=== PATIENT | female | born 1940 | race Asian ===

== ENCOUNTER 2020-01-24 14:45 | Inpatient (IN) | payer OTHER ==
[2020-01-24 15:23] VITALS: BMI 17.6
--- NOTE | 2020-01-24 15:41 | PDOC ---
History of Present Illness - General Chief Complaint: Weakness Stated Complaint: WEAKNESS Time Seen by Provider: 01/24/20 14:51 - History of Present Illness Initial Comments: History obtained via presetter operator and brother. Shanika Mancuso is a 79 y/o female with unknown [facility] today. Lives at home with . A few days ago her was admitted to [facility]. Per school of nursing director patient has not been eating for the past few days since her was in the hospital. No complaints at this time. Has not seen a doctor in many years. welfare service aide noticed that she was not eating and called EMS. No chest pain/shortness of breath. Pt speaks Upper Sorbian and is hard of hearing. Past History - Medical History Allergies/Adverse Reactions: Allergies Allergy/AdvReac Type Severity Reaction Status Date / Time No Known Allergies Allergy Verified 01/24/20 16:12 Home Medications: Ambulatory Orders Asceniv 01/24/20 Gabapentin 01/24/20 Nexium 01/24/20 Pataday 01/24/20 Vitamin D - 01/24/20 - Psycho-Social/Smoking History Smoking History: Unknown if ever smoked Review of Systems - Review of Systems Comments:: GENERAL/CONSTITUTIONAL: No fever or chills. No weakness._ HEAD, EYES, EARS, NOSE AND THROAT: No change in vision. No change in hearing. No sore throat._ CARDIOVASCULAR: No chest pain or shortness of breath_ RESPIRATORY: Denies cough, hemoptysis_ GASTROINTESTINAL: No nausea, vomiting, diarrhea or constipation._ GENITOURINARY: No dysuria, frequency, or change in urination._ MUSCULOSKELETAL: No joint or muscle swelling or pain. No neck or back pain._ SKIN: No rash_ NEUROLOGIC: No headache, vertigo, loss of consciousness, or change in strength/sensation._ ENDOCRINE: No increased thirst. No abnormal weight change_ HEMATOLOGIC/LYMPHATIC: No anemia, easy bleeding, or history of blood clots._ ALLERGIC/IMMUNOLOGIC: No hives or skin allergy._ *Physical Exam - Vital Signs Last Vital Signs Temp Pulse Resp BP Pulse Ox 97.9 F 75 16 127/77 99 01/24/20 15:13 01/24/20 15:13 01/24/20 15:13 01/24/20 15:13 01/24/20 15:13 - Physical Exam GENERAL: Awake, alert, in no acute distress_ HEAD: No signs of trauma, normocephalic, atraumatic _ EYES: PERRLA, EOMI, sclera anicteric, conjunctiva clear_ ENT: Hearing grossly normal, nares patent, oropharynx clear without exudates. No uvular deviation. Moist mucosa_ NECK: Normal ROM, supple, no lymphadenopathy, JVD, or masses_ LUNGS: No distress, speaks in full sentences, clear to auscultation bilaterally _ HEART: Regular rate and rhythm, normal S1 and S2, no murmurs appreciated, peripheral pulses normal and equal bilaterally._ ABDOMEN: Soft, nontender, normoactive bowel sounds. No guarding, no rebound. No masses_ EXTREMITIES: Normal inspection, Normal range of motion, no edema. No clubbing or cyanosis_ NEUROLOGICAL: Cranial nerves II through XII grossly intact. no focal sensorimotor deficits _ SKIN: Warm, Dry, normal turgor, no rashes or lesions noted_ ED Treatment Course - LABORATORY CBC & Chemistry Diagram: 01/24/20 16:19 01/24/20 16:19 Medical Decision Making - Medical Decision Making 01/24/20 16:08 79F no known PMH presenting today with decreased appetite and failure to thrive. -labs -urine -cardiac w/u -CT head 01/24/20 17:24 Labs reviewed. Laboratory Last Values WBC 7.7 K/mm3 (4.0-10.0) 01/24/20 16:19 RBC 4.09 M/mm3 (3.60-5.2) 01/24/20 16:19 Hgb 11.6 GM/dL (10.7-15.3) 01/24/20 16:19 Hct 35.2 % (32.4-45.2) 01/24/20 16:19 MCV 86.0 fl (80-96) 01/24/20 16:19 MCH 28.3 pg (25.7-33.7) 01/24/20 16:19 MCHC 33.0 g/dl (32.0-36.0) 01/24/20 16:19 RDW 14.4 % (11.6-15.6) 01/24/20 16:19 Plt Count 330 K/MM3 (134-434) 01/24/20 16:19 MPV 8.8 fl (7.5-11.1) 01/24/20 16:19 Absolute Neuts (auto) 4.6 K/mm3 (1.5-8.0) 01/24/20 16:19 Neutrophils % 59.8 % (42.8-82.8) 01/24/20 16:19 Lymphocytes % 30.7 % (8-40) 01/24/20 16:19 Monocytes % 8.0 % (3.8-10.2) 01/24/20 16:19 Eosinophils % 1.0 % (0-4.5) 01/24/20 16:19 Basophils % 0.5 % (0-2.0) 01/24/20 16:19 Nucleated RBC % 0 % (0-0) 01/24/20 16:19 PT with INR 18.20 SEC (9.7-13.0) H 01/24/20 16:19 INR 1.54 (0.83-1.09) H 01/24/20 16:19 PTT (Actin FS) 28.4 SECONDS (25.2-36.5) 01/24/20 16:19 Sodium 130 mmol/L (136-145) L 01/24/20 16:19 Potassium 5.6 mmol/L (3.5-5.1) H 01/24/20 16:19 Chloride 94 mmol/L (98-107) L 01/24/20 16:19 Carbon Dioxide 25 mmol/L (21-32) 01/24/20 16:19 Anion Gap 11 MMOL/L (8-16) 01/24/20 16:19 BUN 27.7 mg/dL (7-18) H 01/24/20 16:19 Creatinine 1.4 mg/dL (0.55-1.3) H 01/24/20 16:19 Est GFR (CKD-EPI)AfAm 41.03 01/24/20 16:19 Est GFR (CKD-EPI)NonAf 35.40 01/24/20 16:19 POC Glucometer 237 UNITS (80-120) 01/24/20 17:05 Random Glucose 223 mg/dL (74-106) H 01/24/20 16:19 Calcium 9.3 mg/dL (8.5-10.1) 01/24/20 16:19 Total Bilirubin 0.4 mg/dL (0.2-1) 01/24/20 16:19 AST 12 U/L (15-37) L 01/24/20 16:19 ALT 20 U/L (13-61) 01/24/20 16:19 Alkaline Phosphatase 98 U/L (45-117) 01/24/20 16:19 Creatine Kinase 35 U/L (26-192) 01/24/20 16:19 Troponin I < 0.02 ng/ml (0.00-0.05) 01/24/20 16:19 Total Protein 8.1 g/dl (6.4-8.2) 01/24/20 16:19 Albumin 3.6 g/dl (3.4-5.0) 01/24/20 16:19 Urine Color Yellow 01/24/20 16:56 Urine Appearance Clear 01/24/20 16:56 Urine pH 5.0 (5.0-8.0) 01/24/20 16:56 Ur Specific [place] 1.017 (1.010-1.035) 01/24/20 16:56 Urine Protein 2+ (NEGATIVE) H 01/24/20 16:56 Urine Glucose (UA) 2+ (NEGATIVE) H 01/24/20 16:56 Urine Ketones Trace (NEGATIVE) H 01/24/20 16:56 Urine Blood Negative (NEGATIVE) 01/24/20 16:56 Urine Nitrite Negative (NEGATIVE) 01/24/20 16:56 Urine Bilirubin Negative (NEGATIVE) 01/24/20 16:56 Urine Urobilinogen 1.0 mg/dL (0.2-1.0) 01/24/20 16:56 Ur Leukocyte Esterase Trace (NEGATIVE) 01/24/20 16:56 Urine WBC (Auto) 40 /uL (0-25.8) 01/24/20 16:56 Urine RBC (Auto) 6 /uL (0-23.9) 01/24/20 16:56 Urine Casts (Auto) 4 /uL (0-3.1) 01/24/20 16:56 U Epithel Cells (Auto) 24 /uL (0-25.1) 01/24/20 16:56 Urine Bacteria (Auto) 184 /uL (0-1359) 01/24/20 16:56 CT head negative for acute intracranial pathology. Mild JULIETTE - will start gentle hydration. EKG shows 76 bpm, NSR, T wave inversions in II, aVF, V6, normal axis, no ST elevation, QTc 396, no prior for comparison. Plan to admit for JULIETTE and usp placement. 01/24/20 18:30 D/w Dr. Iqbal who accepts the patient for admission. Discharge - Discharge Information Problems reviewed: Yes Clinical Impression/Diagnosis: JULIETTE (acute kidney injury), Failure to thrive in adult Condition: Stable - Admission Yes - Follow up/Referral - Patient Discharge Instructions - Post Discharge Activity
[2020-01-24 16:37] LABS: BASO % 0.5 % (0-2.0); HEMATOCRIT 35.2 % (32.4-45.2); HEMOGLOBIN 11.6 GM/dL (10.7-15.3); LYMPH % 30.7 % (8-40); MCH 28.3 pg (25.7-33.7); MEAN PLT VOLUME 8.8 fl (7.5-11.1); NEUT % 59.8 % (42.8-82.8); PLATELET COUNT 330 K/MM3 (134-434); RBC 4.09 M/mm3 (3.60-5.2); RDW 14.4 % (11.6-15.6); WHITE BLOOD COUNT 7.7 K/mm3 (4.0-10.0)
[2020-01-24 17:06] LABS: EPI CELLS 24 /uL (0-25.1); HYALINE CASTS 4 /uL (0-3.1); URINE APPEARANCE CLEAR; URINE BACTERIA 184 /uL (0-1359); URINE BILIRUBIN NEGATIVE (NEGATIVE); URINE COLOR YELLOW; URINE GLUCOSE (UA) 2+ (NEGATIVE); URINE KETONE TRACE (NEGATIVE); URINE LEUK ESTERASE TRACE (NEGATIVE); URINE NITRITE NEGATIVE (NEGATIVE); URINE PROTEIN 2+ (NEGATIVE); URINE RBC 6 /uL (0-23.9); URINE WBC 40 /uL (0-25.8)
[2020-01-24 17:10] LABS: ALBUMIN 3.6 g/dl (3.4-5.0); ALK PHOS 98 U/L (45-117); ANION GAP 11 MMOL/L (8-16); BILIRUBIN,TOTAL 0.4 mg/dL (0.2-1); BLOOD UREA NITROGEN 27.7 mg/dL (7-18); CALCIUM 9.3 mg/dL (8.5-10.1); CHLORIDE 94 mmol/L (98-107); CO2 25 mmol/L (21-32); CREATININE 1.4 mg/dL (0.55-1.3); GLUCOSE,RANDOM 223 mg/dL (74-106); POTASSIUM 5.6 mmol/L (3.5-5.1); SGOT/AST 12 U/L (15-37); SGPT/ALT 20 U/L (13-61); SODIUM 130 mmol/L (136-145); TOT PROT 8.1 g/dl (6.4-8.2)
[2020-01-24 17:13] LABS: INR 1.54 (0.83-1.09); PROTHROMBIN TIME (PATIENT) 18.2 SEC (9.7-13.0)
[2020-01-24 17:16] LABS: ACTIVATED PTT 28.4 SECONDS (25.2-36.5)
[2020-01-24] MEDS ORDERED: SODIUM CHLORIDE 0.9% 500 ML INFUS.BAG IV ONE (17:26)
--- NOTE | 2020-01-24 17:39 | PDOC ---
Documentation entered by Coral Rivero SCRIBE, acting as scribe for Danny Buenrostro MD. Danny Buenrostro MD: This documentation has been prepared by the Mat oleary Adrianna, SCRIBE, under my direction and personally reviewed by me in its entirety. I confirm that the documentation accurately reflects all work, treatment, procedures, and medical decision making performed by me. Attending Attestation - Resident Resident Name: Alton Andersen - ED Attending Attestation I have performed the following: I have examined & evaluated the patient, The case was reviewed & discussed with the resident, I agree w/resident's findings & plan, Exceptions are as noted - HPI HPI: The patient is an 79 year old female, with unknown PMH, who presents to the ED for failure to thrive. As per nursing informatics clinical analyst, the patient's was recently admitted to [facility] and has not been with her. Since then, patient had not been eating and is increasingly lethargic. HPI is limited 2/2 patient being a poor historian. - Physicial Exam PE: see resident exam - Medical Decision Making 01/24/20 17:40 79 F with failure to thrive. - Labs - CXR, UA - CT head - Admit Discharge - Discharge Information Problems reviewed: Yes Clinical Impression/Diagnosis: JULIETTE (acute kidney injury), Failure to thrive in adult Condition: Stable - Follow up/Referral - Patient Discharge Instructions - Post Discharge Activity
--- NOTE | 2020-01-24 18:21 | HP ---
CHIEF COMPLAINT:FTT, AMS PCP: none HISTORY OF PRESENT ILLNESS: 79 yo serbian speaking F PMH HTN, DM, GERD, hx of cardiac murmur brought into hospital by home health aid for failure to thrive and inability to ambulate. Attempted to speak with patient with viscosity worker phone but patient is hard of hearing. attempted to call brother with number in chart without success. spoke with brother , who states that is primary intern architect and asked me to call him for further details. Brother states that normally she walks and can perform basic daily tasks but normally helps care for her. he states she has been bed ridden for a few days. Husbands number was given as Carlos: [phone]. Dr Bryant- primary physician - hasnt been seen in >5 y. states 30 lb wt loss 5 y ago. endorses DM and HTN. states she had a cardiac murmur in past. [phone] ER course was notable for: (1)CXR negative for acute pathology (2)Cr 1.4 PAST MEDICAL HISTORY: no known hx PAST SURGICAL HISTORY: surgical scar below umbilicus but would need further history Social History: unable to obtain Allergies No Known Allergies Allergy (Verified 01/24/20 16:12) HOME MEDICATIONS: Home Medications Medication Instructions Recorded Asceniv 01/24/20 Gabapentin 01/24/20 Nexium 01/24/20 Pataday 01/24/20 Vitamin D - 01/24/20 REVIEW OF SYSTEMS: unable to obtain PHYSICAL EXAMINATION Vital Signs - 24 hr 01/24/20 15:13 Temperature 97.9 F Pulse Rate 75 Respiratory 16 Rate Blood Pressure 127/77 O2 Sat by Pulse 99 Oximetry (%) GENERAL: Awake, alert,, in no acute distress. thin elderly woman HEAD: Normal with no signs of trauma. EYES: Pupils equal, round and reactive to light, extraocular movements intact EARS, NOSE, THROAT:dry mucous membranes. NECK: no JVD. LUNGS: Breath sounds equal, clear to auscultation bilaterally. No wheezes, and no crackles. No accessory muscle use. HEART: Regular rate and rhythm, normal S1 and S2; + systolic murmur ABDOMEN: Soft, nontender, not distended, normoactive bowel sounds, no guarding, no rebound UPPER EXTREMITIES: 2+ pulses, warm, well-perfused.No peripheral edema. LOWER EXTREMITIES: 2+ pulses, warm, well-perfused. No calf tenderness. No peripheral edema. NEUROLOGICAL: unable to assess, but no facial asymmetry, moves extremities spontaneously. responds to commands . Laboratory Last Values WBC 7.7 K/mm3 (4.0-10.0) 01/24/20 16:19 RBC 4.09 M/mm3 (3.60-5.2) 01/24/20 16:19 Hgb 11.6 GM/dL (10.7-15.3) 01/24/20 16:19 Hct 35.2 % (32.4-45.2) 01/24/20 16:19 MCV 86.0 fl (80-96) 01/24/20 16:19 MCH 28.3 pg (25.7-33.7) 01/24/20 16:19 MCHC 33.0 g/dl (32.0-36.0) 01/24/20 16:19 RDW 14.4 % (11.6-15.6) 01/24/20 16:19 Plt Count 330 K/MM3 (134-434) 01/24/20 16:19 MPV 8.8 fl (7.5-11.1) 01/24/20 16:19 Absolute Neuts (auto) 4.6 K/mm3 (1.5-8.0) 01/24/20 16:19 Neutrophils % 59.8 % (42.8-82.8) 01/24/20 16:19 Lymphocytes % 30.7 % (8-40) 01/24/20 16:19 Monocytes % 8.0 % (3.8-10.2) 01/24/20 16:19 Eosinophils % 1.0 % (0-4.5) 01/24/20 16:19 Basophils % 0.5 % (0-2.0) 01/24/20 16:19 Nucleated RBC % 0 % (0-0) 01/24/20 16:19 PT with INR 18.20 SEC (9.7-13.0) H 01/24/20 16:19 INR 1.54 (0.83-1.09) H 01/24/20 16:19 PTT (Actin FS) 28.4 SECONDS (25.2-36.5) 01/24/20 16:19 Sodium 130 mmol/L (136-145) L 01/24/20 16:19 Potassium 5.6 mmol/L (3.5-5.1) H 01/24/20 16:19 Chloride 94 mmol/L (98-107) L 01/24/20 16:19 Carbon Dioxide 25 mmol/L (21-32) 01/24/20 16:19 Anion Gap 11 MMOL/L (8-16) 01/24/20 16:19 BUN 27.7 mg/dL (7-18) H 01/24/20 16:19 Creatinine 1.4 mg/dL (0.55-1.3) H 01/24/20 16:19 Est GFR (CKD-EPI)AfAm 41.03 01/24/20 16:19 Est GFR (CKD-EPI)NonAf 35.40 01/24/20 16:19 POC Glucometer 237 UNITS (80-120) 01/24/20 17:05 Random Glucose 223 mg/dL (74-106) H 01/24/20 16:19 Calcium 9.3 mg/dL (8.5-10.1) 01/24/20 16:19 Total Bilirubin 0.4 mg/dL (0.2-1) 01/24/20 16:19 AST 12 U/L (15-37) L 01/24/20 16:19 ALT 20 U/L (13-61) 01/24/20 16:19 Alkaline Phosphatase 98 U/L (45-117) 01/24/20 16:19 Creatine Kinase 35 U/L (26-192) 01/24/20 16:19 Troponin I < 0.02 ng/ml (0.00-0.05) 01/24/20 16:19 Total Protein 8.1 g/dl (6.4-8.2) 01/24/20 16:19 Albumin 3.6 g/dl (3.4-5.0) 01/24/20 16:19 Urine Color Yellow 01/24/20 16:56 Urine Appearance Clear 01/24/20 16:56 Urine pH 5.0 (5.0-8.0) 01/24/20 16:56 Ur Specific [place] 1.017 (1.010-1.035) 01/24/20 16:56 Urine Protein 2+ (NEGATIVE) H 01/24/20 16:56 Urine Glucose (UA) 2+ (NEGATIVE) H 01/24/20 16:56 Urine Ketones Trace (NEGATIVE) H 01/24/20 16:56 Urine Blood Negative (NEGATIVE) 01/24/20 16:56 Urine Nitrite Negative (NEGATIVE) 01/24/20 16:56 Urine Bilirubin Negative (NEGATIVE) 01/24/20 16:56 Urine Urobilinogen 1.0 mg/dL (0.2-1.0) 01/24/20 16:56 Ur Leukocyte Esterase Trace (NEGATIVE) 01/24/20 16:56 Urine WBC (Auto) 40 /uL (0-25.8) 01/24/20 16:56 Urine RBC (Auto) 6 /uL (0-23.9) 01/24/20 16:56 Urine Casts (Auto) 4 /uL (0-3.1) 01/24/20 16:56 U Epithel Cells (Auto) 24 /uL (0-25.1) 01/24/20 16:56 Urine Bacteria (Auto) 184 /uL (0-1359) 01/24/20 16:56 ASSESSMENT/PLAN: 79 yo serbian speaking F PMH HTN, DM, GERD, hx of cardiac murmur brought into hospital by home health aid for failure to thrive and inability to ambulate/. Acute toxic metabolic encephalopathy/ Failure to thrive - CXR reviewed- no acute pathology - Head CT negative for acute pathology - no sign of infection; WBC 7.7, afebrile . will hold abx for now - will get speech and swallow eval - will cont IVF - need further hx. JULIETTE vs CKD - cont IVF, avoid nephrotoxic agent - will get renal u/s HTN - cont to monitor off meds DM - ISS and BGM Cardiac murmur - PCP states it is not new F/E/N - IV NS @ 83 cc/hr - rpt BMP stat; if hyperK is true then will address - speech and swallow eval DVT ppx: Hep SQ Dispo: admit to medicine Visit type - Emergency Visit Emergency Visit: Yes ED Registration Date: 01/24/20 Care time: The patient presented to the Emergency Department on the above date and was hospitalized for further evaluation of their emergent condition. - New Patient This patient is new to me today: Yes - Critical Care Critical Care patient: No ATTENDING PHYSICIAN STATEMENT I saw and evaluated the patient. I reviewed the resident's note and discussed the case with the resident. I agree with the resident's findings and plan as documented. SUBJECTIVE: OBJECTIVE: ASSESSMENT AND PLAN:
[2020-01-24] MEDS ORDERED: SODIUM CHLORIDE 1,000 ML IV SCH (19:00)
--- NOTE | 2020-01-24 19:51 | PN ---
Teaching Attending Note Name of Resident: Antonieta Iqbal ATTENDING PHYSICIAN STATEMENT I saw and evaluated the patient. I reviewed the resident's note and discussed the case with the resident. I agree with the resident's findings and plan as documented. SUBJECTIVE: This is an 79 year old woman with a history of HTN, type 2 DM, murmur, GERD who comes to the ED because she has not been eating or walking for a few days. This started when her was admitted to [facility]. Her has been her primary caregiver. She had been walking prior to his hospitalization but has been bed bound for the last few days. OBJECTIVE: Vital Signs Period Temp Pulse Resp BP Sys/Collier Pulse Ox Last 24 Hr 97.9 F 75 16 127/77 99 GENERAL: No distress HEART: S1S2, RRR LUNGS: Clear ABDOMEN: Soft, non-distended, normal BS EXTREMITIES: No edema NEUROLOGICAL: Alert, responds to some simple commands, moving all extremities Laboratory Tests 01/24/20 01/24/20 01/24/20 16:19 16:19 16:19 WBC 7.7 RBC 4.09 Hgb 11.6 Hct 35.2 MCV 86.0 MCH 28.3 MCHC 33.0 RDW 14.4 Plt Count 330 MPV 8.8 Absolute Neuts (auto) 4.6 Neutrophils % 59.8 Lymphocytes % 30.7 Monocytes % 8.0 Eosinophils % 1.0 Basophils % 0.5 Nucleated RBC % 0 PT with INR 18.20 H INR 1.54 H PTT (Actin FS) 28.4 Sodium 130 L Potassium 5.6 H Chloride 94 L Carbon Dioxide 25 Anion Gap 11 BUN 27.7 H Creatinine 1.4 H Est GFR (CKD-EPI)AfAm 41.03 Est GFR (CKD-EPI)NonAf 35.40 POC Glucometer Random Glucose 223 H Calcium 9.3 Total Bilirubin 0.4 AST 12 L ALT 20 Alkaline Phosphatase 98 Creatine Kinase 35 Troponin I < 0.02 Total Protein 8.1 Albumin 3.6 Urine Color Urine Appearance Urine pH Ur Specific [place] Urine Protein Urine Glucose (UA) Urine Ketones Urine Blood Urine Nitrite Urine Bilirubin Urine Urobilinogen Ur Leukocyte Esterase Urine WBC (Auto) Urine RBC (Auto) Urine Casts (Auto) U Epithel Cells (Auto) Urine Bacteria (Auto) 01/24/20 01/24/20 16:56 17:05 WBC RBC Hgb Hct MCV MCH MCHC RDW Plt Count MPV Absolute Neuts (auto) Neutrophils % Lymphocytes % Monocytes % Eosinophils % Basophils % Nucleated RBC % PT with INR INR PTT (Actin FS) Sodium Potassium Chloride Carbon Dioxide Anion Gap BUN Creatinine Est GFR (CKD-EPI)AfAm Est GFR (CKD-EPI)NonAf POC Glucometer 237 Random Glucose Calcium Total Bilirubin AST ALT Alkaline Phosphatase Creatine Kinase Troponin I Total Protein Albumin Urine Color Yellow Urine Appearance Clear Urine pH 5.0 Ur Specific [place] 1.017 Urine Protein 2+ H Urine Glucose (UA) 2+ H Urine Ketones Trace H Urine Blood Negative Urine Nitrite Negative Urine Bilirubin Negative Urine Urobilinogen 1.0 Ur Leukocyte Esterase Trace Urine WBC (Auto) 40 Urine RBC (Auto) 6 Urine Casts (Auto) 4 U Epithel Cells (Auto) 24 Urine Bacteria (Auto) 184 Home Medications Medication Instructions Recorded Asceniv 01/24/20 Gabapentin 01/24/20 Nexium 01/24/20 Pataday 01/24/20 Vitamin D - 01/24/20 ASSESSMENT AND PLAN: This is an 79 year old woman with a history of HTN, type 2 DM, murmur, GERD who was sent to the ED by her home health aide because she has not been eating or ambulating for several days since her was admitted to [facility]. 1. Acute metabolic encephalopathy secondary to dehydration with acute kidney injury, hyponatremia and hyperkalemia - No obvious infection, and is afebrile with normal WBC - Follow-up urine culture - IV fluid - Monitor electrolytes, BUN, creatinine - Renal US
[2020-01-24 20:58] LABS: CALCIUM 8.4 mg/dL (8.5-10.1); CREATININE 1.3 mg/dL (0.55-1.3)
[2020-01-24 21:07] LABS: POTASSIUM 6.6 mmol/L (3.5-5.1)
[2020-01-24] MEDS ORDERED: HEPARIN NA (PORCINE) 5,000 UNITS/ML 1ML VIAL ONE (22:01)
[2020-01-24] MEDS: INSULIN SLIDING SCALE (NOVOLOG) 1 VIAL SQ SCH (22:24)
[2020-01-24] MEDS: HEPARIN NA (PORCINE) 5,000 UNITS/ML 1ML VIAL SQ SCH (22:24)
[2020-01-25] MEDS ORDERED: INSULIN REGULAR HUMAN 100 UNITS/ML *VIAL IVPUSH ONE (00:05)
[2020-01-25] MEDS ORDERED: DEXTROSE 50%-WATER - 25 GM/50 ML VIAL IVPUSH ONE (00:05)
[2020-01-25] MEDS ORDERED: CALCIUM GLUCONATE 10% - 1,000 MG/10 ML VIAL IVPB ONE (00:05)
[2020-01-25] MEDS ORDERED: CALCIUM GLUCONATE 10% - 1,000 MG/10 ML VIAL ONE (01:35)
[2020-01-25] MEDS ORDERED: DEXTROSE 50%-WATER 25 GM/50 ML DISP.SYRIN ONE (01:35)
[2020-01-25 03:15] LABS: BASO % 0.4 % (0-2.0); EOS % 0.8 % (0-4.5); HEMATOCRIT 31.8 % (32.4-45.2); HEMOGLOBIN 10.6 GM/dL (10.7-15.3); LYMPH % 20.9 % (8-40); MCH 28.5 pg (25.7-33.7); MCHC 33.3 g/dl (32.0-36.0); MEAN CELL VOLUME 85.6 fl (80-96); MEAN PLT VOLUME 8.6 fl (7.5-11.1); MONO % 7.5 % (3.8-10.2); NEUT % 70.4 % (42.8-82.8); PLATELET COUNT 302 K/MM3 (134-434); RBC 3.71 M/mm3 (3.60-5.2); RDW 14.3 % (11.6-15.6); WHITE BLOOD COUNT 10.3 K/mm3 (4.0-10.0)
[2020-01-25 03:57] LABS: BILIRUBIN,TOTAL 0.4 mg/dL (0.2-1); BLOOD UREA NITROGEN 21.8 mg/dL (7-18); CALCIUM 8.7 mg/dL (8.5-10.1); CREATININE 1.1 mg/dL (0.55-1.3); MAGNESIUM 2.4 mg/dL (1.8-2.4); PHOSPHOROUS 3.6 mg/dL (2.5-4.9); TOT PROT 7.2 g/dl (6.4-8.2)
[2020-01-25] MEDS: HEPARIN NA (PORCINE) 5,000 UNITS/ML 1ML VIAL SQ SCH ×3 (06:23→21:08)
[2020-01-25] MEDS ORDERED: HEPARIN NA (PORCINE) 5,000 UNITS/ML 1ML VIAL ONE (06:34)
[2020-01-25] MEDS: INSULIN SLIDING SCALE (NOVOLOG) 1 VIAL SQ SCH ×3 (08:15→17:41)
[2020-01-25 10:46] LABS: BASO % 0.3 % (0-2.0); EOS % 0.6 % (0-4.5); HEMATOCRIT 30.9 % (32.4-45.2); HEMOGLOBIN 10.3 GM/dL (10.7-15.3); LYMPH % 19.4 % (8-40); MCH 28.7 pg (25.7-33.7); MCHC 33.3 g/dl (32.0-36.0); MEAN CELL VOLUME 86.1 fl (80-96); MEAN PLT VOLUME 8.5 fl (7.5-11.1); MONO % 6.9 % (3.8-10.2); NEUT % 72.8 % (42.8-82.8); PLATELET COUNT 296 K/MM3 (134-434); RBC 3.59 M/mm3 (3.60-5.2); RDW 14.2 % (11.6-15.6); WHITE BLOOD COUNT 7.9 K/mm3 (4.0-10.0)
[2020-01-25] MEDS ORDERED: THIAMINE HCL 200 MG/2 ML VIAL IVPB SCH (11:00)
--- NOTE | 2020-01-25 11:05 | CONSULT ---
Admitting History and Physical - Admission History of Present Illness: Per EMR- 79 year old woman with a history of HTN, type 2 DM, murmur, GERD who was sent to the ED by her home health aide because she has not been eating or ambulating for several days since her was admitted to [facility]. Acute metabolic encephalopathy secondary to dehydration with acute kidney injury, hyponatremia and hyperkalemia Selected Entries 01/25/20 01/25/20 01/25/20 02:00 05:10 10:00 Temperature 98.1 F 98.3 F Pulse Rate [ 68 71 83 Right] Laboratory Tests 01/24/20 01/25/20 01/25/20 18:29 02:50 02:50 WBC 10.3 H Sodium 134 L COVID-19 (CHERYLE) Pending Tolerated hot cereal/tea this am Went for Renal U/s History Source: Medical Record Limitations to Obtaining History: Clinical Condition - Smoking History Smoking history: Unknown if ever smoked History - Admission Reason For Visit: ACUTE KIDNEY INJURY FAILURE TO THRIVE
[2020-01-25 11:15] LABS: BLOOD UREA NITROGEN 19.7 mg/dL (7-18); CALCIUM 8.4 mg/dL (8.5-10.1); POTASSIUM 4.7 mmol/L (3.5-5.1)
[2020-01-25] MEDS ORDERED: ACETAMINOPHEN 1000 MG/100 ML VIAL (NON FORMULARY) IVPB ONE (11:45)
--- NOTE | 2020-01-25 11:51 | EKG ---
Test Reason : Blood Pressure : / mmHG Vent. Rate : 076 BPM Atrial Rate : 076 BPM P-R Int : 178 ms QRS Dur : 096 ms QT Int : 352 ms P-R-T Axes : 029 045 -73 degrees QTc Int : 396 ms NORMAL SINUS RHYTHM POSSIBLE INFERIOR INFARCT , AGE UNDETERMINED ABNORMAL ECG NO PREVIOUS ECGS AVAILABLE Confirmed by SOLO MON MD ([id number]) on 01/25/2020 11:51:03 AM Referred By: Confirmed By:SOLO MON MD
[2020-01-25] MEDS ORDERED: CEFTRIAXONE 1 GM/50 ML BAG ONE (12:01)
[2020-01-25] MEDS ORDERED: THIAMINE HCL 200 MG/2 ML VIAL ONE (12:01)
[2020-01-25] MEDS: CEFTRIAXONE 1 GM in DEXTROSE 5%-WATER 50 ML IVPB SCH (13:17)
[2020-01-25] MEDS ORDERED: ACETAMINOPHEN INJECTION 100 ML IVPB ONE (13:26)
[2020-01-25] MEDS ORDERED: SODIUM CHLORIDE 0.45% 1,000 ML IV SCH (14:00)
--- NOTE | 2020-01-25 14:02 | PN ---
Teaching Attending Note Name of Resident: Jun Veronica ATTENDING PHYSICIAN STATEMENT I saw and evaluated the patient. I reviewed the resident's note and discussed the case with the resident. I agree with the resident's findings and plan as documented. SUBJECTIVE: patient is hard of hearing, and does not cooperate with referral specialist phone. she does not answer questions but cooperative . all info obtained form chart and RN. No events over ngiht. ate this am . cooperated with RN. willl come and visit today as he was discharged. brother , to whom the ER staff spoke yesterday, said he is not sure of her baseline as he did not see her i a long while. OBJECTIVE: NAD, awake, alert, cooperative, cachectc, temporal wasting, MMM, decreased skin turgor . flat affect CV: RRR, 2/6 Dm at LLSB , and 3/6 SM at apex. Lungs: CTAB abd : soft, NT, Nd, bladder is not percussed or palpated Ext : No edema or erythema on legs or arms. dry skin ASSESSMENT AND PLAN: 79 y/o lady with reported h/o HTN, type 2 DM, murmur, GERD , ? medical follow up ,who presented with AMS. She was found to have JULIETTE, hyperkalemia, and possible UTI 1- Acute metabolic encephalopathy. seems to have improved, but not sure of her base line . language barrier and hard of hearing. will d/w when he visits her - cont current management - treat possible UTI 2- JULIETTE due to volume depletion: cr improved with IVF - cont IVF. - bladder is not palpated or percussed. No suspicion for obstruction . 3- Hyperkalemia : due to JULIETTE. resolved after insulin treatment,a nd renal function improvement 4- Hyponatremia: likely hypotonic hypovolemic in setting of poor po intake - NA corrected appropriately over 12 hours. - cont IVF 5- mod-severe protein vinita malnutrition , - give thiamine IV x 1 now - Monitor and correct electrolytes - dietitian consult 6- reported H/o DM, not sure of treatment. check A1c - SSI here 7- Possible UTI: - start ceftriaxone - monitor WBC - fo llwo urine cx 8- PT eval. DVT px Sq heparin will confrm if she takes any meds with her
[2020-01-25] MEDS: SODIUM CHLORIDE 1,000 ML IV SCH (15:06)
[2020-01-25 18:50] LABS: BLOOD UREA NITROGEN 18.4 mg/dL (7-18); CALCIUM 8.8 mg/dL (8.5-10.1); CREATININE 1.1 mg/dL (0.55-1.3); MAGNESIUM 2.6 mg/dL (1.8-2.4); PHOSPHOROUS 3.7 mg/dL (2.5-4.9); POTASSIUM 5.3 mmol/L (3.5-5.1)
--- NOTE | 2020-01-25 21:29 | PN ---
Physical Exam: SUBJECTIVE: Patient seen and examined bedside. She is in no acute distress. Speaks Croatian. OBJECTIVE: Vital Signs Period Temp Pulse Resp BP Sys/Collier Pulse Ox Last 24 Hr 38.5 F-98.8 F 62-83 15-20 105-123/56-68 98-100 ENERAL: Awake, alert, in no acute distress. Very thin HEAD: Normal with no signs of trauma. EYES: Pupils equal, round and reactive to light, extraocular movements intact ENT: dry mucous membranes. NECK: No JVD. LUNGS: Breath sounds equal, clear to auscultation bilaterally. HEART: Regular rate and rhythm, with a systolic murmur at apex ABDOMEN: Soft, nontender, not distended UPPER EXTREMITIES: 2+ pulses, warm, well-perfused. LOWER EXTREMITIES: 2+ pulses, warm, well-perfused. NEUROLOGICAL: unable to assess fully but no facial asymmetry, moves extremities spontaneously. responds to commands . Laboratory Results - last 24 hr 01/24/20 01/25/20 01/25/20 21:49 02:50 02:50 WBC 10.3 H RBC 3.71 Hgb 10.6 L Hct 31.8 L MCV 85.6 MCH 28.5 MCHC 33.3 RDW 14.3 Plt Count 302 MPV 8.6 Absolute Neuts (auto) 7.3 Neutrophils % 70.4 Lymphocytes % 20.9 D Monocytes % 7.5 Eosinophils % 0.8 Basophils % 0.4 Nucleated RBC % 0 Sodium 134 L Potassium 4.0 Chloride 101 Carbon Dioxide 26 Anion Gap 7 L BUN 21.8 H Creatinine 1.1 Est GFR (CKD-EPI)AfAm 54.91 Est GFR (CKD-EPI)NonAf 47.38 POC Glucometer 217 Random Glucose 134 H Hemoglobin A1c % Calcium 8.7 Phosphorus 3.6 Magnesium 2.4 Total Bilirubin 0.4 AST 9 L ALT 16 Alkaline Phosphatase 92 Total Protein 7.2 Albumin 3.0 L TSH 0.39 01/25/20 01/25/20 01/25/20 08:11 08:30 10:18 WBC 7.9 RBC 3.59 L Hgb 10.3 L Hct 30.9 L MCV 86.1 MCH 28.7 MCHC 33.3 RDW 14.2 Plt Count 296 MPV 8.5 Absolute Neuts (auto) 5.7 Neutrophils % 72.8 Lymphocytes % 19.4 Monocytes % 6.9 Eosinophils % 0.6 Basophils % 0.3 Nucleated RBC % 0 Sodium 132 L Potassium 4.7 Chloride 100 Carbon Dioxide 25 Anion Gap 6 L BUN 19.7 H Creatinine 1.0 Est GFR (CKD-EPI)AfAm 61.62 Est GFR (CKD-EPI)NonAf 53.17 POC Glucometer 141 Random Glucose 229 H Hemoglobin A1c % Calcium 8.4 L Phosphorus Magnesium Total Bilirubin AST ALT Alkaline Phosphatase Total Protein Albumin TSH 01/25/20 01/25/20 01/25/20 10:18 11:07 17:05 WBC RBC Hgb Hct MCV MCH MCHC RDW Plt Count MPV Absolute Neuts (auto) Neutrophils % Lymphocytes % Monocytes % Eosinophils % Basophils % Nucleated RBC % Sodium 134 L Potassium 5.3 H Chloride 101 Carbon Dioxide 25 Anion Gap 8 BUN 18.4 H Creatinine 1.1 Est GFR (CKD-EPI)AfAm 54.91 Est GFR (CKD-EPI)NonAf 47.38 POC Glucometer 217 Random Glucose 140 H Hemoglobin A1c % 12.6 H Calcium 8.8 Phosphorus 3.7 Magnesium 2.6 H Total Bilirubin AST ALT Alkaline Phosphatase Total Protein Albumin TSH 01/25/20 17:40 WBC RBC Hgb Hct MCV MCH MCHC RDW Plt Count MPV Absolute Neuts (auto) Neutrophils % Lymphocytes % Monocytes % Eosinophils % Basophils % Nucleated RBC % Sodium Potassium Chloride Carbon Dioxide Anion Gap BUN Creatinine Est GFR (CKD-EPI)AfAm Est GFR (CKD-EPI)NonAf POC Glucometer 137 Random Glucose Hemoglobin A1c % Calcium Phosphorus Magnesium Total Bilirubin AST ALT Alkaline Phosphatase Total Protein Albumin TSH Active Medications Generic Name Dose Route Start Last Admin Trade Name Freq PRN Reason Stop Dose Admin Heparin Sodium (Porcine) 5,000 unit 01/24/20 22:00 01/25/20 21:08 Heparin - SQ 5,000 unit TID STAS Administration Ceftriaxone Sodium 1 gm/ 50 mls @ 100 mls/hr 01/25/20 11:15 01/25/20 13:17 Dextrose IVPB 100 mls/hr DAILY STAS Administration Sodium Chloride 1,000 mls @ 75 mls/hr 01/25/20 14:15 01/25/20 15:06 Normal Saline - IV Not Given ASDIR STAS Insulin Aspart 1 vial 01/25/20 16:30 01/25/20 17:41 Novolog Vial Sliding Scale - SQ Not Given TIDAC [facility] Protocol CXR - no acute pathology Head CT negative for acute pathology RA: nonobstructing right renal stone and likely nonobstructing real stone at the level of the right renal pelvis. Large sepatated/complex renal cysts. No evidence of hydronephrosis BL ASSESSMENT/PLAN: 79 y/o lady with reported h/o HTN, type 2 DM, murmur, GERD , ? medical follow up ,who presented with AMS. She was found to have JULIETTE, hyperkalemia, and possible UTI UTI - UA positive, treating with 1g ceftriaxone - RA ordered: showed stones MALNUTRITION - Thiamine given - Monitor and correct electrolytes - dietitian consult - speech and swallow have been consulted JULIETTE - due to volume depletion: cr improved with IVF - cont IVF DM - unclear if previous diagnose - monitor sugars and on sliding scale Prophylaxis - Sq heparin Covid Pending Was able to get in touch with Dipak . Was hard to understand each other on the phone as he seems hard of hearing as well. He said he would be coming to hospital today at 3 but we weren't able to find him or get in touch with him again. We will try again tomorrow as to clarify patient's baseline and medical history. Visit type - Emergency Visit Emergency Visit: Yes ED Registration Date: 01/24/20 Care time: The patient presented to the Emergency Department on the above date and was hospitalized for further evaluation of their emergent condition. - New Patient This patient is new to me today: Yes Date on this admission: 01/27/20 - Critical Care Critical Care patient: No - Discharge Referral Referred to [facility] Med P.C.: No ATTENDING PHYSICIAN STATEMENT I saw and evaluated the patient. I reviewed the resident's note and discussed the case with the resident. I agree with the resident's findings and plan as documented. SUBJECTIVE: OBJECTIVE: ASSESSMENT AND PLAN:
[2020-01-26] MEDS: SODIUM CHLORIDE 1,000 ML IV SCH ×2 (03:11→16:34)
[2020-01-26] MEDS: HEPARIN NA (PORCINE) 5,000 UNITS/ML 1ML VIAL SQ SCH ×2 (06:13→13:59)
[2020-01-26] MEDS: INSULIN SLIDING SCALE (NOVOLOG) 1 VIAL SQ SCH ×3 (06:50→16:34)
[2020-01-26 08:00] LABS: BASO % 0.8 % (0-2.0); EOS % 2.4 % (0-4.5); HEMATOCRIT 29.2 % (32.4-45.2); HEMOGLOBIN 9.7 GM/dL (10.7-15.3); LYMPH % 39.1 % (8-40); MCH 28.6 pg (25.7-33.7); MCHC 33.3 g/dl (32.0-36.0); MEAN CELL VOLUME 86.1 fl (80-96); MEAN PLT VOLUME 8.9 fl (7.5-11.1); MONO % 9.3 % (3.8-10.2); NEUT % 48.4 % (42.8-82.8); PLATELET COUNT 287 K/MM3 (134-434); RBC 3.39 M/mm3 (3.60-5.2); RDW 14.4 % (11.6-15.6); WHITE BLOOD COUNT 4.9 K/mm3 (4.0-10.0)
[2020-01-26 08:21] LABS: ALBUMIN 2.9 g/dl (3.4-5.0); BILIRUBIN,TOTAL 0.3 mg/dL (0.2-1); BLOOD UREA NITROGEN 12.9 mg/dL (7-18); CALCIUM 8.5 mg/dL (8.5-10.1); CREATININE 0.9 mg/dL (0.55-1.3); MAGNESIUM 2.5 mg/dL (1.8-2.4); PHOSPHOROUS 3.4 mg/dL (2.5-4.9); POTASSIUM 4.5 mmol/L (3.5-5.1); TOT PROT 6.8 g/dl (6.4-8.2)
--- NOTE | 2020-01-26 09:31 | PN ---
Progress Note, SURVEY TECHNICIAN - Note Progress Note: Per nursing note yesterday, pt poor historian. Cyracom used, Pt speaks mohawk, Malay. but says she cant hear anything Laboratory Tests 01/24/20 18:29 COVID-19 (CHERYLE) Not detected Assessed with Cyracom in [place]. Upon request, pt heard the request and told me her first and last name, states "I can't hear" and "I dont know" for all other questions, directives, counting in unison, etc. Mild right facial noted. Hearing loss vs communication impairment? I called pt's , tele in EMR incorrect. I spoke with Sergio, her brother in law who gave me new tele # for Carlos- [phone]. No response. I called [facility] again who said "Carlos is sick too, Lung problem, recently d/c'd from hospital. Probably sleeping, Try again" Sergio reported "Shanika hears if you speak loud" Hearing loss adversely affecting assessment. Baseline? If baseline function has acutely changed, consider neurology, repeat CT/MRI to r/o CVA.
[2020-01-26] MEDS: CEFTRIAXONE 1 GM in DEXTROSE 5%-WATER 50 ML IVPB SCH (10:57)
--- NOTE | 2020-01-26 13:54 | PN ---
Physical Exam: SUBJECTIVE: Patient seen and examined OBJECTIVE: Vital Signs Period Temp Pulse Resp BP Sys/Collier Pulse Ox Last 24 Hr 97.8 F-98.7 F 64-70 18-20 121-137/62-71 98-99 ENERAL: Awake, alert, in no acute distress. Very thin HEAD: Normal with no signs of trauma. EYES: Pupils equal, round and reactive to light, extraocular movements intact ENT: dry mucous membranes. NECK: No JVD. LUNGS: Breath sounds equal, clear to auscultation bilaterally. HEART: Regular rate and rhythm, with a systolic murmur at apex ABDOMEN: Soft, not distended, possibly tender winces like in pain with palpation UPPER EXTREMITIES: 2+ pulses, warm, well-perfused. LOWER EXTREMITIES: 2+ pulses, warm, well-perfused. NEUROLOGICAL: unable to assess fully but no facial asymmetry, moves extremities spontaneously. responds to commands . Laboratory Results - last 24 hr 01/24/20 01/25/20 01/25/20 18:29 10:18 17:05 WBC RBC Hgb Hct MCV MCH MCHC RDW Plt Count MPV Absolute Neuts (auto) Neutrophils % Lymphocytes % Monocytes % Eosinophils % Basophils % Nucleated RBC % Sodium 134 L Potassium 5.3 H Chloride 101 Carbon Dioxide 25 Anion Gap 8 BUN 18.4 H Creatinine 1.1 Est GFR (CKD-EPI)AfAm 54.91 Est GFR (CKD-EPI)NonAf 47.38 POC Glucometer Random Glucose 140 H Hemoglobin A1c % 12.6 H Calcium 8.8 Phosphorus 3.7 Magnesium 2.6 H Total Bilirubin AST ALT Alkaline Phosphatase Total Protein Albumin COVID-19 (CHERYLE) Not detected 01/25/20 01/26/20 01/26/20 17:40 06:16 06:50 WBC 4.9 RBC 3.39 L Hgb 9.7 L Hct 29.2 L MCV 86.1 MCH 28.6 MCHC 33.3 RDW 14.4 Plt Count 287 MPV 8.9 Absolute Neuts (auto) 2.4 Neutrophils % 48.4 D Lymphocytes % 39.1 D Monocytes % 9.3 Eosinophils % 2.4 D Basophils % 0.8 Nucleated RBC % 0 Sodium Potassium Chloride Carbon Dioxide Anion Gap BUN Creatinine Est GFR (CKD-EPI)AfAm Est GFR (CKD-EPI)NonAf POC Glucometer 137 148 Random Glucose Hemoglobin A1c % Calcium Phosphorus Magnesium Total Bilirubin AST ALT Alkaline Phosphatase Total Protein Albumin COVID-19 (CHERYLE) 01/26/20 01/26/20 06:50 11:20 WBC RBC Hgb Hct MCV MCH MCHC RDW Plt Count MPV Absolute Neuts (auto) Neutrophils % Lymphocytes % Monocytes % Eosinophils % Basophils % Nucleated RBC % Sodium 136 Potassium 4.5 Chloride 105 Carbon Dioxide 25 Anion Gap 6 L BUN 12.9 Creatinine 0.9 Est GFR (CKD-EPI)AfAm 69.99 Est GFR (CKD-EPI)NonAf 60.39 POC Glucometer 291 Random Glucose 161 H Hemoglobin A1c % Calcium 8.5 Phosphorus 3.4 Magnesium 2.5 H Total Bilirubin 0.3 AST 13 L ALT 12 L Alkaline Phosphatase 83 Total Protein 6.8 Albumin 2.9 L COVID-19 (CHERYLE) Active Medications Generic Name Dose Route Start Last Admin Trade Name Freq PRN Reason Stop Dose Admin Heparin Sodium (Porcine) 5,000 unit 01/24/20 22:00 01/26/20 06:13 Heparin - SQ 5,000 unit TID STAS Administration Ceftriaxone Sodium 1 gm/ 50 mls @ 100 mls/hr 01/25/20 11:15 01/26/20 10:57 Dextrose IVPB 100 mls/hr DAILY STAS Administration Sodium Chloride 1,000 mls @ 75 mls/hr 01/25/20 14:15 01/26/20 03:11 Normal Saline - IV 75 mls/hr ASDIR STAS Administration Insulin Aspart 1 vial 01/25/20 16:30 01/26/20 11:45 Novolog Vial Sliding Scale - SQ 2 units TIDAC STAS Administration Protocol ASSESSMENT/PLAN: 79 yo Maori speaking women with incomplete PMhx due to being extremely hard of hearing and inability for team to speak to family. Suspected T2DM, HTN. She presented with AMS but no clear baseline. She was found to have JULIETTE, hyperkalemia, and possible UTI. She was admitted for metabolic encephalopathy due to UTI with failure to thrive. UTI - UA positive, treating with 1g ceftriaxone - day 2 - cultures + for Strep Agalactiae Group B - RA ordered: showed stones MALNUTRITION - Thiamine given - Monitor and correct electrolytes - dietitian consult - speech and swallow have been consulted JULIETTE - due to volume depletion: cr improved with IVF - cont IVF DM - previously on glypizide, holding for now for free of hypoglycemia - managing with sliding scale Prophylaxis - Sq heparin Confimed with pharmacy medications. Last picked up 12/29/19. Prescribed by Dr. Onofre Bryant restarting patient on home medication: Digoxin, xarelto, amlodipine. Will try to get in touch with patient's doctor for PMHx and more collateral. Dipak still unable to get in touch with him. Visit type - Emergency Visit Emergency Visit: Yes ED Registration Date: 01/24/20 Care time: The patient presented to the Emergency Department on the above date and was hospitalized for further evaluation of their emergent condition. - New Patient This patient is new to me today: No - Critical Care Critical Care patient: No - Discharge Referral Referred to [facility] Med P.C.: Yes ATTENDING PHYSICIAN STATEMENT I saw and evaluated the patient. I reviewed the resident's note and discussed the case with the resident. I agree with the resident's findings and plan as documented. SUBJECTIVE: OBJECTIVE: ASSESSMENT AND PLAN:
--- NOTE | 2020-01-26 19:12 | PN ---
Teaching Attending Note Name of Resident: Perri Lindsey ATTENDING PHYSICIAN STATEMENT I saw and evaluated the patient. I reviewed the resident's note and discussed the case with the resident. I agree with the resident's findings and plan as documented. SUBJECTIVE: no events over night. she answers " good " when asked how she feels OBJECTIVE: NAD, awake, alert, cooperative, cachectic, temporal wasting, MMM, . flat affect . hard of hearing CV: RRR, 2/6 DM at LLSB , and 3/6 SM at apex. Lungs: CTAB abd : soft, NT, Nd, Nl BS Ext : No edema or erythema on legs or arms. dry skin ASSESSMENT AND PLAN: 79 y/o lady with reported h/o HTN, type 2 DM, murmur, GERD , ? medical follow up ,who presented with AMS. She was found to have JULIETTE, hyperkalemia, and possible UTI 1- Acute metabolic encephalopathy. improved. unsure of base line 2- JULIETTE due to volume depletion: cr, BUN improved - cont IVF. will dc in am 3- Hyperkalemia : due to JULIETTE. resolved 4- Hyponatremia: likely hypotonic hypovolemic in setting of poor po intake. improved 5- Mod-severe protein vinita malnutrition , 6-H/o DM, A1c 12. per pharmacy, she is on glipizide. Not sure of compliance - will d/w about benefit/risk of insulin treatment . if he is able to administer safely, will prescribe for home use, otherwise will give oral agents - cont SSi here 7- UTI: - cont ceftriaxone day 2 - U cx noted 8- PT eval. DVT px Sq heparin
[2020-01-26] MEDS: SENNOSIDES/DOCUSATE COMBO (SENNA PLUS) TABLET (UD) PO SCH (21:33)
[2020-01-27] MEDS: SODIUM CHLORIDE 1,000 ML IV SCH ×2 (05:18→14:54)
[2020-01-27] MEDS: SENNOSIDES/DOCUSATE COMBO (SENNA PLUS) TABLET (UD) PO SCH ×3 (06:16→21:27)
[2020-01-27] MEDS: INSULIN SLIDING SCALE (NOVOLOG) 1 VIAL SQ SCH ×3 (06:39→17:22)
[2020-01-27 08:49] LABS: HEMATOCRIT 29.4 % (32.4-45.2); HEMOGLOBIN 9.8 GM/dL (10.7-15.3); MCHC 33.2 g/dl (32.0-36.0); MEAN CELL VOLUME 87.3 fl (80-96); MEAN PLT VOLUME 8.9 fl (7.5-11.1); PLATELET COUNT 283 K/MM3 (134-434); RBC 3.37 M/mm3 (3.60-5.2); RDW 14.2 % (11.6-15.6); WHITE BLOOD COUNT 5.3 K/mm3 (4.0-10.0)
[2020-01-27 09:13] LABS: BLOOD UREA NITROGEN 7.5 mg/dL (7-18); CALCIUM 8.8 mg/dL (8.5-10.1); MAGNESIUM 2.2 mg/dL (1.8-2.4); POTASSIUM 4.1 mmol/L (3.5-5.1)
[2020-01-27 09:14] LABS: CREATININE 0.8 mg/dL (0.55-1.3)
[2020-01-27] MEDS: CEFTRIAXONE 1 GM in DEXTROSE 5%-WATER 50 ML IVPB SCH (09:38)
[2020-01-27] MEDS: amLODIPine BESYLATE 5 MG TABLET (FP) PO SCH (09:38)
[2020-01-27] MEDS ORDERED: PANTOPRAZOLE 40 MG TABLET PO SCH (10:00)
--- NOTE | 2020-01-27 10:18 | PN ---
Physical Exam: SUBJECTIVE: Patient seen and examined today. In no acute distress. Was able to hear my say dipak and responded. Today spoke more but still not clear how much she understands. OBJECTIVE: Vital Signs Period Temp Pulse Resp BP Sys/Collier Pulse Ox Last 24 Hr 98.3 F-99.1 F 67-79 18-20 124-155/59-83 97 ENERAL: Awake, alert, in no acute distress. Very thin HEAD: Normal with no signs of trauma. EYES: Pupils equal, round and reactive to light, extraocular movements intact ENT: dry mucous membranes. NECK: No JVD. LUNGS: Breath sounds equal, clear to auscultation bilaterally. HEART: Regular rate and rhythm, with a systolic murmur at apex ABDOMEN: Soft, not distended, possibly tender winces like in pain with palpation UPPER EXTREMITIES: 2+ pulses, warm, well-perfused. LOWER EXTREMITIES: 2+ pulses, warm, well-perfused. NEUROLOGICAL: unable to assess fully but no facial asymmetry, moves extremities spontaneously. responds to commands . Laboratory Results - last 24 hr 01/26/20 01/26/20 01/27/20 11:20 16:24 06:19 WBC RBC Hgb Hct MCV MCH MCHC RDW Plt Count MPV Sodium Potassium Chloride Carbon Dioxide Anion Gap BUN Creatinine Est GFR (CKD-EPI)AfAm Est GFR (CKD-EPI)NonAf POC Glucometer 291 203 200 Random Glucose Calcium Phosphorus Magnesium Digoxin 01/27/20 01/27/20 01/27/20 08:09 08:09 08:09 WBC 5.3 RBC 3.37 L Hgb 9.8 L Hct 29.4 L MCV 87.3 MCH 29.0 MCHC 33.2 RDW 14.2 Plt Count 283 MPV 8.9 Sodium 137 Potassium 4.1 Chloride 105 Carbon Dioxide 24 Anion Gap 8 BUN 7.5 Creatinine 0.8 Est GFR (CKD-EPI)AfAm 80.70 Est GFR (CKD-EPI)NonAf 69.63 POC Glucometer Random Glucose 114 H Calcium 8.8 Phosphorus 3.0 Magnesium 2.2 Digoxin 1.00 Active Medications Generic Name Dose Route Start Last Admin Trade Name Freq PRN Reason Stop Dose Admin Amlodipine Besylate 5 mg 01/27/20 10:00 01/27/20 09:38 Norvasc - PO 5 mg DAILY STAS Administration Digoxin 0.125 mg 01/27/20 10:00 Lanoxin - PO DAILY STAS Ceftriaxone Sodium 1 gm/ 50 mls @ 100 mls/hr 01/25/20 11:15 01/27/20 09:38 Dextrose IVPB 100 mls/hr DAILY STAS Administration Sodium Chloride 1,000 mls @ 75 mls/hr 01/25/20 14:15 01/27/20 05:18 Normal Saline - IV 75 mls/hr ASDIR STAS Administration Insulin Aspart 1 vial 01/25/20 16:30 01/27/20 06:39 Novolog Vial Sliding Scale - SQ 2 units TIDAC STAS Administration Protocol Rivaroxaban 20 mg 01/26/20 22:00 Xarelto PO HS STAS Senna/Docusate Sodium 1 tablet 01/26/20 22:00 01/27/20 06:16 Pericolace - PO 1 tablet TID STAS Administration ASSESSMENT/PLAN: 79 yo Greenlandic speaking women with incomplete PMhx due to being extremely hard of hearing and inability for team to speak to family. Suspected T2DM, HTN. She presented with AMS but no clear baseline. She was found to have JULIETTE, hyperkalemia, and possible UTI. She was admitted for metabolic encephalopathy due to UTI with failure to thrive. UTI - UA positive, treating with 1g ceftriaxone - day 3 - cultures + for Strep Agalactiae Group B - RA ordered: showed stones MALNUTRITION - Thiamine given - Monitor and correct electrolytes as needed - dietitian consult - speech and swallow have been consulted JULIETTE - due to volume depletion: cr improved with IVF - cont IVF DM - previously on glypizide, holding for now for free of hypoglycemia - managing with sliding scale Prophylaxis - Sq heparin - Started Xarelto today -Confimed with pharmacy medications. Last picked up 12/29/19. Prescribed by Dr. Onofre Bryant . Talked to Dr. Bryant's service, they said they'd relay the message, I gave them my cell phone number. -Restarting patient on home medication: Digoxin, xarelto, amlodipine - Dipak spoke to him this morning, he can't come to hospital today. He isn't concerned that we aren't able to understand his . He doesn't know why she's on the medication that she is on. He said to call their doctor but the nurse did call Dr. BRYANT and the office refused to give any information including indication for medicine, they said to go through . Unclear if home is safe environment for patient, will discus with social work. Visit type - Emergency Visit Emergency Visit: Yes ED Registration Date: 01/24/20 Care time: The patient presented to the Emergency Department on the above date and was hospitalized for further evaluation of their emergent condition. - New Patient This patient is new to me today: No - Critical Care Critical Care patient: No - Discharge Referral Referred to [facility] Med [facility]C.: No ATTENDING PHYSICIAN STATEMENT I saw and evaluated the patient. I reviewed the resident's note and discussed the case with the resident. I agree with the resident's findings and plan as documented. SUBJECTIVE: OBJECTIVE: ASSESSMENT AND PLAN:
--- NOTE | 2020-01-27 16:44 | PN ---
Teaching Attending Note Name of Resident: Perri Lindsey ATTENDING PHYSICIAN STATEMENT I saw and evaluated the patient. I reviewed the resident's note and discussed the case with the resident. I agree with the resident's findings and plan as documented. SUBJECTIVE: No events over night. not able to obtain any history OBJECTIVE: NAD, awake, alert, cooperative, cachectic, temporal wasting, MMM, . flat affect . hard of hearing CV: RRR, 2/6 DM at LLSB, and 3/6 SM at apex. Lungs: CTAB Abd: soft, NT, ND, Nl BS Ext: No edema or erythema on legs or arms. Dry skin ASSESSMENT AND PLAN: 79 y/o lady with reported h/o HTN, type 2 DM, murmur, GERD , ? medical follow up ,who presented with AMS. She was found to have JULIETTE, hyperkalemia, and possible UTI. 1- Acute metabolic encephalopathy. improved. unsure of base line. deafness interferes with guest experience representative and communication 2- JULIETTE due to volume depletion: resolved. dc IVF 3- Electrolyte abnormalities resolved. ic in setting of poor po intake. improved 4- Mod-severe protein vinita malnutrition , 5-H/o DM, it seems like insulin is not a good choice for this elderly patient who lives with her elderly who might not be able to administer correctly. resident, Dr. Lindsey spoke to him, and was not able to assess this issue. 6- UTI: - cont ceftriaxone day 3 8- pharmacy was called and meds were confirmed. Not clear why patient is on xarelto and dig. does does not know details. he understands that she has DM, HTn, and heart murmur. team tried to reach PCP yesterday, but office could not provid any Info. will try again on Wednesday. On admission , team spoke to is PCP , who indicated not seeing her for the past 5 year. pharmacy confirms that meds are prescribed by PCP. will investigate further
[2020-01-27] MEDS: RIVAROXABAN 20 MG TABLET PO SCH (17:38)
[2020-01-28] MEDS: INSULIN SLIDING SCALE (NOVOLOG) 1 VIAL SQ SCH ×3 (06:18→17:13)
[2020-01-28] MEDS: SENNOSIDES/DOCUSATE COMBO (SENNA PLUS) TABLET (UD) PO SCH ×3 (06:18→21:16)
[2020-01-28] MEDS: DIGOXIN 0.125 MG TABLET (FP) PO SCH (09:36)
[2020-01-28] MEDS: amLODIPine BESYLATE 5 MG TABLET (FP) PO SCH (09:36)
[2020-01-28] MEDS: CEFTRIAXONE 1 GM in DEXTROSE 5%-WATER 50 ML IVPB SCH (09:37)
--- NOTE | 2020-01-28 15:56 | PN ---
Progress Note (short form) - Note Progress Note: Subjective: No events over night. she says she felt " good " Objective: Vital Signs: Last Vital Signs Temp Pulse Resp BP Pulse Ox 98.5 F 75 18 127/64 99 01/28/20 14:00 01/28/20 14:00 01/28/20 14:00 01/28/20 14:00 01/28/20 09:00 Laboratory Results - last 24 hr 01/27/20 01/27/20 01/28/20 17:21 20:09 06:08 POC Glucometer 189 228 207 01/28/20 11:52 POC Glucometer 250 OBJECTIVE: NAD, awake, alert, cooperative, cachectic, temporal wasting, MMM, . flat affect . hard of hearing CV: RRR, 2/6 DM at LLSB, and 3/6 SM at apex. Lungs: CTAB Abd: soft, NT, ND, Nl BS Ext: No edema or erythema on legs or arms. ASSESSMENT AND PLAN: 79 y/o lady with reported h/o HTN, type 2 DM, murmur, GERD , ? medical follow up ,who presented with AMS. She was found to have JULIETTE, hyperkalemia, and possible UTI. 1- Acute metabolic encephalopathy. improved. unsure of base line. 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 Monitor off IVF 3- Electrolyte abnormalities resolved. 4- Mod-severe protein vinita malnutrition , 5- H/o DM, start januvia ( 50 mg /day) 0 and metformin xl ( 500 mg /day ) 6- UTI: cont ceftriaxone day 4 7- will confirm why she is on xarelto and dig. will d/w PCP tomorrow PT eval , ? placement Visit type - Emergency Visit Emergency Visit: Yes ED Registration Date: 01/24/20 Care time: The patient presented to the Emergency Department on the above date and was hospitalized for further evaluation of their emergent condition. - New Patient This patient is new to me today: No - Critical Care Critical Care patient: No
[2020-01-28] MEDS: RIVAROXABAN 20 MG TABLET PO SCH (17:43)
[2020-01-29] MEDS: INSULIN SLIDING SCALE (NOVOLOG) 1 VIAL SQ SCH ×3 (06:21→16:36)
[2020-01-29] MEDS: SENNOSIDES/DOCUSATE COMBO (SENNA PLUS) TABLET (UD) PO SCH ×3 (06:21→21:13)
[2020-01-29 08:30] LABS: HEMATOCRIT 29.6 % (32.4-45.2); HEMOGLOBIN 9.8 GM/dL (10.7-15.3); MCH 28.5 pg (25.7-33.7); MEAN CELL VOLUME 86.2 fl (80-96); MEAN PLT VOLUME 8.9 fl (7.5-11.1); PLATELET COUNT 271 K/MM3 (134-434); RBC 3.44 M/mm3 (3.60-5.2); RDW 14.6 % (11.6-15.6); WHITE BLOOD COUNT 5.6 K/mm3 (4.0-10.0)
[2020-01-29 08:48] LABS: BLOOD UREA NITROGEN 14.8 mg/dL (7-18); CALCIUM 8.9 mg/dL (8.5-10.1); CREATININE 1.1 mg/dL (0.55-1.3); MAGNESIUM 2.1 mg/dL (1.8-2.4); PHOSPHOROUS 3.9 mg/dL (2.5-4.9); POTASSIUM 4.3 mmol/L (3.5-5.1)
[2020-01-29] MEDS: CEFTRIAXONE 1 GM in DEXTROSE 5%-WATER 50 ML IVPB SCH (09:29)
[2020-01-29] MEDS: DIGOXIN 0.125 MG TABLET (FP) PO SCH (09:29)
[2020-01-29] MEDS: amLODIPine BESYLATE 5 MG TABLET (FP) PO SCH (09:30)
--- NOTE | 2020-01-29 10:12 | PN ---
Physical Exam: SUBJECTIVE: Patient seen and examined bedside. In no acute distress. No events overnight. OBJECTIVE: Vital Signs Period Temp Pulse Resp BP Sys/Collier Pulse Ox Last 24 Hr 98.1 F-99.1 F 64-75 18-18 109-128/56-66 98 ENERAL: Awake, alert, in no acute distress. Very thin HEAD: Normal with no signs of trauma. EYES: Pupils equal, round and reactive to light, extraocular movements intact ENT: dry mucous membranes. NECK: No JVD. LUNGS: Breath sounds equal, clear to auscultation bilaterally. HEART: Regular rate and rhythm, with a systolic murmur at apex ABDOMEN: Soft, not distended, mildly tender to palpation UPPER EXTREMITIES: 2+ pulses, warm, well-perfused. LOWER EXTREMITIES: 2+ pulses, warm, well-perfused. Laboratory Results - last 24 hr 01/28/20 01/28/20 01/28/20 11:52 17:12 21:15 WBC RBC Hgb Hct MCV MCH MCHC RDW Plt Count MPV Sodium Potassium Chloride Carbon Dioxide Anion Gap BUN Creatinine Est GFR (CKD-EPI)AfAm Est GFR (CKD-EPI)NonAf POC Glucometer 250 256 292 Random Glucose Calcium Phosphorus Magnesium 01/29/20 01/29/20 01/29/20 06:14 06:53 06:53 WBC 5.6 RBC 3.44 L Hgb 9.8 L Hct 29.6 L MCV 86.2 MCH 28.5 MCHC 33.0 RDW 14.6 Plt Count 271 MPV 8.9 Sodium 137 Potassium 4.3 Chloride 104 Carbon Dioxide 25 Anion Gap 9 BUN 14.8 Creatinine 1.1 Est GFR (CKD-EPI)AfAm 54.91 Est GFR (CKD-EPI)NonAf 47.38 POC Glucometer 265 Random Glucose 282 H Calcium 8.9 Phosphorus 3.9 Magnesium 2.1 Active Medications Generic Name Dose Route Start Last Admin Trade Name Freq PRN Reason Stop Dose Admin Amlodipine Besylate 5 mg 01/27/20 10:00 01/29/20 09:30 Norvasc - PO 5 mg DAILY ST[facility] Administration Digoxin 0.125 mg 01/27/20 10:00 01/29/20 09:29 Lanoxin - PO 0.125 mg DAILY STAS Administration Ceftriaxone Sodium 1 gm/ 50 mls @ 100 mls/hr 01/25/20 11:15 01/29/20 09:29 Dextrose IVPB 100 mls/hr DAILY [facility] Administration Insulin Aspart 1 vial 01/25/20 16:30 01/29/20 06:21 Novolog Vial Sliding Scale - SQ 6 units TIDAC SATS Administration Protocol Metformin HCl 500 mg 01/29/20 07:00 01/29/20 06:21 Glucophage Xr - PO 500 mg DAILY@0700 [facility] Administration Rivaroxaban 20 mg 01/27/20 18:00 01/28/20 17:43 Xarelto PO 20 mg DAILY@1800 [facility] Administration Senna/Docusate Sodium 1 tablet 01/26/20 22:00 01/29/20 06:21 Pericolace - PO 1 tablet TID STAS Administration Sitagliptin Phosphate 25 mg 01/29/20 07:00 01/29/20 06:20 Januvia - PO 25 mg DAILY@0700 [facility] Administration ASSESSMENT/PLAN: 79 yo Icelandic speaking women with incomplete PMhx due to being extremely hard of hearing and inability for team to speak to family. Suspected T2DM, HTN. She presented with AMS but no clear baseline. She was found to have JULIETTE, hyperkalemia, and possible UTI. She was admitted for metabolic encephalopathy due to UTI with failure to thrive. UTI - UA positive, treating with 1g ceftriaxone - day 5 - cultures + for Strep Agalactiae Group B - RA ordered: showed stones MALNUTRITION - Thiamine given - Monitor and correct electrolytes as needed - dietitian consult - speech and swallow have been consulted JULIETTE - due to volume depletion: cr improved with IVF - cont IVF DM - previously on glypizide, holding for now for free of hypoglycemia - managing with sliding scale - started on metformin and januvia today - safer medications for d/c home Hx AFIB - Dr. Bryant confirmed patient is on xarelto and digoxin for hx of Afib Prophylaxis - Sq heparin - Started Xarelto today DISPO - Dipak did not show up today. Was told by Dr. Bryant that patient has a son. Will try and get information from Carlos and connect with him tomorrow. - Spoke to Dr. Bryant today/ he hasn't seen patient in 2-3 years but patient calls for script refills. History he provided: [facility] 3-4 years ago for arrhythmia [facility] around the same time also for arrhythmia Afib dx 3-4 years ago Digoxin & Xaralto for AFIB GERD hx of EGD HTN DM2 Dr. Bryant spoke to family and they agree that patient should be discharged to nursing facility Visit type - Emergency Visit Emergency Visit: Yes ED Registration Date: 01/24/20 Care time: The patient presented to the Emergency Department on the above date and was hospitalized for further evaluation of their emergent condition. - New Patient This patient is new to me today: No - Critical Care Critical Care patient: No - Discharge Referral Referred to [facility] Med P.C.: No ATTENDING PHYSICIAN STATEMENT I saw and evaluated the patient. I reviewed the resident's note and discussed the case with the resident. I agree with the resident's findings and plan as documented. SUBJECTIVE: OBJECTIVE: ASSESSMENT AND PLAN:
[2020-01-29] MEDS: RIVAROXABAN 20 MG TABLET PO SCH (17:09)
--- NOTE | 2020-01-29 19:34 | PN ---
Teaching Attending Note Name of Resident: Perri Lindsey ATTENDING PHYSICIAN STATEMENT I saw and evaluated the patient. I reviewed the resident's note and discussed the case with the resident. I agree with the resident's findings and plan as documented. SUBJECTIVE: No events over night : OBJECTIVE: NAD, awake, alert, cooperative, cachectic, temporal wasting, MMM, . flat affect . hard of hearing CV: RRR, 2/6 DM at LLSB, and 3/6 SM at apex. Lungs: CTAB Abd: soft, NT, ND, Nl BS Ext: No edema or erythema on upper or lower extremities ASSESSMENT AND PLAN: 79 y/o lady with reported h/o HTN, type 2 DM, A fib , murmur, GERD , ? medical follow up ,who presented with AMS. She was found to have JULIETTE, hyperkalemia, and possible UTI. 1- Acute metabolic encephalopathy. improved. 2- JULIETTE due to volume depletion: resolved. Monitor off IVF 3- Electrolyte abnormalities resolved. 4- Mod-severe protein vinita malnutrition , 5- H/o DM, started januvia and Metformin as it might not be safe for her to be on Insulin at home with her ( even after she is discharged form rehab ) 6- UTI: cont ceftriaxone day 11/22 7- per PCP she has A fib, and that's why she is on xarelto and dig. he renews her meds , he did not see her in 5 yrs PCP spoke to son , and they agree she needs rehab. hard to communicate with . Son called today and left his phone number , but it was lost. plan for rehab, whenever we can speak to son. social work aware. she is medically clear
[2020-01-30] MEDS ORDERED: PT OWN MED DRAWER 7, Y5N ONE (04:17)
[2020-01-30] MEDS: INSULIN SLIDING SCALE (NOVOLOG) 1 VIAL SQ SCH ×3 (06:04→17:53)
[2020-01-30] MEDS: SENNOSIDES/DOCUSATE COMBO (SENNA PLUS) TABLET (UD) PO SCH ×3 (06:04→21:32)
[2020-01-30 08:00] LABS: HEMATOCRIT 28.5 % (32.4-45.2); HEMOGLOBIN 9.2 GM/dL (10.7-15.3); MCH 27.9 pg (25.7-33.7); MCHC 32.4 g/dl (32.0-36.0); MEAN CELL VOLUME 86.1 fl (80-96); MEAN PLT VOLUME 8.8 fl (7.5-11.1); PLATELET COUNT 262 K/MM3 (134-434); RBC 3.31 M/mm3 (3.60-5.2); RDW 14.4 % (11.6-15.6); WHITE BLOOD COUNT 6.9 K/mm3 (4.0-10.0)
[2020-01-30 08:39] LABS: BLOOD UREA NITROGEN 21.2 mg/dL (7-18); POTASSIUM 4.2 mmol/L (3.5-5.1)
[2020-01-30 08:40] LABS: PHOSPHOROUS 4.9 mg/dL (2.5-4.9)
[2020-01-30 09:03] LABS: CALCIUM 9.3 mg/dL (8.5-10.1); MAGNESIUM 1.9 mg/dL (1.8-2.4)
[2020-01-30] MEDS ORDERED: cefTRIAXone SODIUM 1 GM VIAL ONE (09:11)
[2020-01-30] MEDS ORDERED: DEXTROSE 5%-WATER 100 ML IVPB ONE (09:11)
[2020-01-30] MEDS: CEFTRIAXONE 1 GM in DEXTROSE 5%-WATER 50 ML IVPB SCH (09:14)
[2020-01-30] MEDS: DIGOXIN 0.125 MG TABLET (FP) PO SCH (09:14)
[2020-01-30] MEDS: amLODIPine BESYLATE 5 MG TABLET (FP) PO SCH (09:14)
--- NOTE | 2020-01-30 10:25 | PN ---
Teaching Attending Note Name of Resident: Perri Lindsey ATTENDING PHYSICIAN STATEMENT I saw and evaluated the patient. I reviewed the resident's note and discussed the case with the resident. I agree with the resident's findings and plan as documented. SUBJECTIVE: Patient is feeling well, unknown baseline , looks like having an expressive aphagia. OBJECTIVE: Vital Signs Temperature 98.2 F 01/30/20 09:07 Pulse Rate 66 01/30/20 09:14 Respiratory Rate 20 01/30/20 09:07 Blood Pressure 118/59 L 01/30/20 09:07 O2 Sat by Pulse Oximetry (%) 99 01/30/20 09:00 PE: per resident's note motor 5/5 bl CBCD WBC 6.9 K/mm3 (4.0-10.0) 01/30/20 07:00 RBC 3.31 M/mm3 (3.60-5.2) L 01/30/20 07:00 Hgb 9.2 GM/dL (10.7-15.3) L 01/30/20 07:00 Hct 28.5 % (32.4-45.2) L 01/30/20 07:00 MCV 86.1 fl (80-96) 01/30/20 07:00 MCHC 32.4 g/dl (32.0-36.0) 01/30/20 07:00 RDW 14.4 % (11.6-15.6) 01/30/20 07:00 Plt Count 262 K/MM3 (134-434) 01/30/20 07:00 MPV 8.8 fl (7.5-11.1) 01/30/20 07:00 CMP Sodium 138 mmol/L (136-145) 01/30/20 07:00 Potassium 4.2 mmol/L (3.5-5.1) 01/30/20 07:00 Chloride 104 mmol/L (98-107) 01/30/20 07:00 Carbon Dioxide 23 mmol/L (21-32) 01/30/20 07:00 Anion Gap 11 MMOL/L (8-16) 01/30/20 07:00 BUN 21.2 mg/dL (7-18) H 01/30/20 07:00 Creatinine 1.0 mg/dL (0.55-1.3) 01/30/20 07:00 Random Glucose 309 mg/dL (74-106) H 01/30/20 07:00 Calcium 9.3 mg/dL (8.5-10.1) 01/30/20 07:00 Total Bilirubin 0.3 mg/dL (0.2-1) 01/26/20 06:50 AST 13 U/L (15-37) L 01/26/20 06:50 ALT 12 U/L (13-61) L 01/26/20 06:50 Alkaline Phosphatase 83 U/L (45-117) 01/26/20 06:50 Total Protein 6.8 g/dl (6.4-8.2) 01/26/20 06:50 Albumin 2.9 g/dl (3.4-5.0) L 01/26/20 06:50 CARDIAC ENZYMES Creatine Kinase 35 U/L (26-192) 01/24/20 16:19 Troponin I < 0.02 ng/ml (0.00-0.05) 01/24/20 16:19 Current Medications Generic Name Dose Route Start Last Admin Trade Name Sushila PRN Reason Stop Dose Admin Amlodipine Besylate 5 mg 01/27/20 10:00 01/30/20 09:14 Norvasc - PO 5 mg DAILY STAS Administration Digoxin 0.125 mg 01/27/20 10:00 01/30/20 09:14 Lanoxin - PO 0.125 mg DAILY STAS Administration Ceftriaxone Sodium 1 gm/ 50 mls @ 100 mls/hr 01/25/20 11:15 01/30/20 09:14 Dextrose IVPB 100 mls/hr DAILY STAS Administration Insulin Aspart 1 vial 01/25/20 16:30 01/30/20 06:04 Novolog Vial Sliding Scale - SQ 6 units TIDAC STAS Administration Protocol Metformin HCl 500 mg 01/29/20 07:00 01/30/20 06:04 Glucophage Xr - PO 500 mg DAILY@0700 ST[facility] Administration Rivaroxaban 20 mg 01/27/20 18:00 01/29/20 17:09 Xarelto PO 20 mg DAILY@1800 [facility] Administration Senna/Docusate Sodium 1 tablet 01/26/20 22:00 01/30/20 06:04 Pericolace - PO 1 tablet TID STAS Administration Sitagliptin Phosphate 25 mg 01/29/20 07:00 01/30/20 06:04 Januvia - PO 25 mg DAILY@0700 [facility] Administration Home Medications Medication Instructions Recorded Amlodipine Besylate 5 mg PO DAILY 01/26/20 Digoxin [Lanoxin -] 0.25 mg PO DAILY 01/26/20 Glipizide 10 mg PO DAILY 01/26/20 Omeprazole 40 mg PO DAILY 01/26/20 Rivaroxaban [Xarelto -] 20 mg PO HS 01/26/20 Sennosides/Docusate Sodium [Stool 1 each PO TID 01/26/20 Softener-Laxative Tablet] Microbiology 01/24/20 16:56 Urine - Urine - Catheterized Urine Culture - Final Strep Agalactiae Group B ASSESSMENT AND PLAN: This patient is an 79yof with Pmhx of HTN, type 2 DM, A fib , murmur, GERD , is admintted for AMS who was found to have JULIETTE, hyperkalemia, and possible UTI. # Acute metabolic encephalopathy. improved. #Acute dehydration: s/p ivf # JULIETTE due to volume depletion: resolved. Monitor off IVF # Electrolyte abnormalities resolved. # Mod-severe protein vinita malnutrition , #Hx of T2DM : on januvia and Metformin as it might not be safe for her to be on Insulin at home with her ( even after she is discharged form rehab ) # UTI: cont ceftriaxone day 12/23 #As per PCP she has A fib, on xarelto and dig. as per her PCP As per son: patient needs to go to rehab. will monitor , once stable will dc the patient
--- NOTE | 2020-01-30 11:58 | PN ---
Progress Note, STUDENT ASSISTANT - Note Progress Note: Selected Entries 01/29/20 01/29/20 01/30/20 12:30 18:26 05:20 Breakfast 50% Lunch 75% Supper 100% Temperature 97.8 F Blood Pressure 140/78 01/30/20 01/30/20 01/30/20 09:07 09:22 10:04 Breakfast 100% 75% Lunch Supper Temperature 98.2 F Blood Pressure 118/59 L Laboratory Tests 01/30/20 07:00 WBC 6.9 Pt verbally responding but rarely, to name, 's name, repeated bye in German, followed some simple commands eg close your eyes, move your feet Pt is ASA[place], adsversely affected by speaker using a mask, however, she hears and responds appropriately intermittently. Mostly rare speech initiation. Establishes eye contact. Seems to understand on simple level to loud speech. Right facial at rest? When I spoke with pt's brother in law on Wednesday, he said she could have a conversation if loud enough. CT head (-) Differential Dx ASA'CARSARMIUT but pt rarely speaking. Consider possibility of Aphasia-Neuro, further radiographic assessment? Discussed with PMD
--- NOTE | 2020-01-30 15:23 | PN ---
Physical Exam: SUBJECTIVE: Patient seen and examined bedside. In no acute distress. No events overnight. OBJECTIVE: Vital Signs Period Temp Pulse Resp BP Sys/Collier Pulse Ox Last 24 Hr 97.8 F-99.5 F 66-77 18-20 107-140/59-78 98-99 GENERAL: Awake, alert, in no acute distress. Very thin. HEAD: Normal with no signs of trauma. EYES: PERRL ENT: dry mucous membranes. NECK: No JVD. LUNGS: Breath sounds equal, clear to auscultation bilaterally. HEART: Regular rate and rhythm, with a systolic murmur at apex ABDOMEN: Soft, not distended, mildly tender to palpation EXTREMITIES: warm, well-perfused, no edema Laboratory Results - last 24 hr 01/29/20 01/30/20 01/30/20 16:16 05:53 07:00 WBC RBC Hgb Hct MCV MCH MCHC RDW Plt Count MPV Sodium Potassium Chloride Carbon Dioxide Anion Gap BUN Creatinine Est GFR (CKD-EPI)AfAm Est GFR (CKD-EPI)NonAf POC Glucometer 228 300 Random Glucose Calcium Phosphorus Magnesium Digoxin 0.67 L 01/30/20 01/30/20 01/30/20 07:00 07:00 08:00 WBC 6.9 RBC 3.31 L Hgb 9.2 L Hct 28.5 L MCV 86.1 MCH 27.9 MCHC 32.4 RDW 14.4 Plt Count 262 MPV 8.8 Sodium 138 Potassium 4.2 Chloride 104 Carbon Dioxide 23 Anion Gap 11 BUN 21.2 H Creatinine 1.0 Est GFR (CKD-EPI)AfAm 61.62 Est GFR (CKD-EPI)NonAf 53.17 POC Glucometer Random Glucose 309 H Calcium 9.3 Phosphorus 4.9 Magnesium 1.9 Digoxin Cancelled 01/30/20 11:30 WBC RBC Hgb Hct MCV MCH MCHC RDW Plt Count MPV Sodium Potassium Chloride Carbon Dioxide Anion Gap BUN Creatinine Est GFR (CKD-EPI)AfAm Est GFR (CKD-EPI)NonAf POC Glucometer 255 Random Glucose Calcium Phosphorus Magnesium Digoxin Active Medications Generic Name Dose Route Start Last Admin Trade Name Freq PRN Reason Stop Dose Admin Amlodipine Besylate 5 mg 01/27/20 10:00 01/30/20 09:14 Norvasc - PO 5 mg DAILY STAS Administration Digoxin 0.125 mg 01/27/20 10:00 01/30/20 09:14 Lanoxin - PO 0.125 mg DAILY STAS Administration Ceftriaxone Sodium 1 gm/ 50 mls @ 100 mls/hr 01/25/20 11:15 01/30/20 09:14 Dextrose IVPB 100 mls/hr DAILY STAS Administration Insulin Aspart 1 vial 01/25/20 16:30 01/30/20 11:39 Novolog Vial Sliding Scale - SQ 6 units TIDAC STAS Administration Protocol Metformin HCl 500 mg 01/29/20 07:00 01/30/20 06:04 Glucophage Xr - PO 500 mg DAILY@0700 STAS Administration Rivaroxaban 20 mg 01/27/20 18:00 01/29/20 17:09 Xarelto PO 20 mg DAILY@1800 [facility] Administration Senna/Docusate Sodium 1 tablet 01/26/20 22:00 01/30/20 13:07 Pericolace - PO 1 tablet TID STAS Administration Sitagliptin Phosphate 25 mg 01/29/20 07:00 01/30/20 06:04 Januvia - PO 25 mg DAILY@0700 STAS Administration ASSESSMENT/PLAN: 79 yo Maltese speaking women with incomplete PMhx due to being extremely hard of hearing and inability for team to speak to family. Suspected T2DM, HTN. She presented with AMS but no clear baseline. She was found to have JULIETTE, hyperkalemia, and possible UTI. She was admitted for metabolic encephalopathy due to UTI with failure to thrive. UTI - UA positive, treating with 1g ceftriaxone - day 6 - cultures + for Strep Agalactiae Group B - RA ordered: showed stones MALNUTRITION - Thiamine given - Monitor and correct electrolytes as needed - speech and swallow have been consulted Consider possibility of Aphasia-Neuro, further radiographic assessment? - Thoracic, lumbar & pelvic Xrays today - no evidence of fractures JULIETTE - due to volume depletion: cr improved with IVF - cont IVF DM - previously on glypizide, holding for now for free of hypoglycemia - managing with sliding scale - started on metformin and januvia today - safer medications for d/c home Hx AFIB - Dr. Bryant confirmed patient is on xarelto and digoxin for hx of Afib Prophylaxis - Sq heparin - Started Xarelto today DISPO Dipak Carlos gave me Son Douglas's number today . I called him with no response. He called back and Dr. Montelongo answered and filled him in briefly. Douglas lives in [place] and agrees his mother needs to go to facility for better care. Gave Son's number to social work. Will try to contact him again tomorrow. Spoke to Dr. Bryant/ he hasn't seen patient in 2-3 years but patient calls for script refills. History he provided: [facility] 3-4 years ago for arrhythmia [facility] around the same time also for arrhythmia Afib dx 3-4 years ago Digoxin & Xaralto for AFIB GERD hx of EGD HTN DM2 Dr. Bryant spoke to family and they agree that patient should be discharged to nursing facility Visit type - Emergency Visit Emergency Visit: Yes ED Registration Date: 01/24/20 Care time: The patient presented to the Emergency Department on the above date and was hospitalized for further evaluation of their emergent condition. - New Patient This patient is new to me today: No - Critical Care Critical Care patient: No - Discharge Referral Referred to [facility] Med P.C.: No ATTENDING PHYSICIAN STATEMENT I saw and evaluated the patient. I reviewed the resident's note and discussed the case with the resident. I agree with the resident's findings and plan as documented. SUBJECTIVE: OBJECTIVE: ASSESSMENT AND PLAN:
[2020-01-30] MEDS: RIVAROXABAN 20 MG TABLET PO SCH (17:53)
[2020-01-31] MEDS: INSULIN SLIDING SCALE (NOVOLOG) 1 VIAL SQ SCH ×3 (06:06→16:49)
[2020-01-31] MEDS: SENNOSIDES/DOCUSATE COMBO (SENNA PLUS) TABLET (UD) PO SCH ×4 (06:06→21:12)
[2020-01-31 08:30] LABS: HEMATOCRIT 28.1 % (32.4-45.2); HEMOGLOBIN 9.3 GM/dL (10.7-15.3); MCH 28.6 pg (25.7-33.7); MCHC 33.1 g/dl (32.0-36.0); MEAN CELL VOLUME 86.5 fl (80-96); MEAN PLT VOLUME 8.9 fl (7.5-11.1); PLATELET COUNT 285 K/MM3 (134-434); RBC 3.25 M/mm3 (3.60-5.2); RDW 14.3 % (11.6-15.6); WHITE BLOOD COUNT 7.2 K/mm3 (4.0-10.0)
[2020-01-31 08:47] LABS: BLOOD UREA NITROGEN 19.7 mg/dL (7-18); CALCIUM 9.5 mg/dL (8.5-10.1); CREATININE 0.9 mg/dL (0.55-1.3); PHOSPHOROUS 3.9 mg/dL (2.5-4.9); POTASSIUM 4.5 mmol/L (3.5-5.1)
[2020-01-31] MEDS ORDERED: DEXTROSE 5%-WATER 100 ML IVPB ONE (09:48)
[2020-01-31] MEDS ORDERED: cefTRIAXone SODIUM 1 GM VIAL ONE (09:48)
[2020-01-31] MEDS: CEFTRIAXONE 1 GM in DEXTROSE 5%-WATER 50 ML IVPB SCH (09:56)
[2020-01-31] MEDS: DIGOXIN 0.125 MG TABLET (FP) PO SCH (09:56)
[2020-01-31] MEDS: amLODIPine BESYLATE 5 MG TABLET (FP) PO SCH (09:56)
--- NOTE | 2020-01-31 10:36 | PN ---
Progress Note, POWERTRAIN DESIGN ENGINEER - Note Progress Note: Selected Entries 01/30/20 01/30/20 01/30/20 09:22 10:04 14:42 Breakfast 100% 75% Diet Tolerated Well Well Lunch 75% Supper Temperature Blood Pressure 01/30/20 01/31/20 01/31/20 18:57 05:33 10:04 Breakfast 75% Diet Tolerated Fair Well Lunch Supper 50% Temperature 98.3 F Blood Pressure 134/72 Laboratory Tests 01/31/20 07:[address] head -No change Pt's presentation is confusing with hearing loss and limited [place]. She hears and responds to some questions readily eg name, follows some commands eg close your eyes, and repeats words in Maltese and [place] intermittently, with delay. She seems to engage well not clearly demonstrating confusion. Speech initiation seems impaired. She rarely speaks. Right facial slightly weaker than left. Moves all extremities.Speech production/voice intake, precise Tolerating reg diet well. r/o Aphasia/Apraxia/impaired speech initiation? Baseline? Brother in law reported she could have conversation in past if "loud" Consider Neurology assessment Continue Speech tx upon d/c
[2020-01-31] MEDS: RIVAROXABAN 20 MG TABLET PO SCH (18:20)
--- NOTE | 2020-01-31 18:37 | PN ---
Teaching Attending Note Name of Resident: Perri Lindsey ATTENDING PHYSICIAN STATEMENT I saw and evaluated the patient. I reviewed the resident's note and discussed the case with the resident. I agree with the resident's findings and plan as documented. SUBJECTIVE: Patient is ablr to understand, expressive aphasia OBJECTIVE: Vital Signs Temperature 99.3 F 01/31/20 13:43 Pulse Rate 73 01/31/20 13:43 Respiratory Rate 18 01/31/20 13:43 Blood Pressure 124/65 01/31/20 13:43 O2 Sat by Pulse Oximetry (%) 98 01/31/20 10:00 PE:per resident's note expressive aphagia CBCD WBC 7.2 K/mm3 (4.0-10.0) 01/31/20 07:34 RBC 3.25 M/mm3 (3.60-5.2) L 01/31/20 07:34 Hgb 9.3 GM/dL (10.7-15.3) L 01/31/20 07:34 Hct 28.1 % (32.4-45.2) L 01/31/20 07:34 MCV 86.5 fl (80-96) 01/31/20 07:34 MCHC 33.1 g/dl (32.0-36.0) 01/31/20 07:34 RDW 14.3 % (11.6-15.6) 01/31/20 07:34 Plt Count 285 K/MM3 (134-434) 01/31/20 07:34 MPV 8.9 fl (7.5-11.1) 01/31/20 07:34 CMP Sodium 137 mmol/L (136-145) 01/31/20 06:00 Potassium 4.5 mmol/L (3.5-5.1) 01/31/20 06:00 Chloride 105 mmol/L (98-107) 01/31/20 06:00 Carbon Dioxide 22 mmol/L (21-32) 01/31/20 06:00 Anion Gap 9 MMOL/L (8-16) 01/31/20 06:00 BUN 19.7 mg/dL (7-18) H 01/31/20 06:00 Creatinine 0.9 mg/dL (0.55-1.3) 01/31/20 06:00 Random Glucose 245 mg/dL (74-106) H 01/31/20 06:00 Calcium 9.5 mg/dL (8.5-10.1) 01/31/20 06:00 Total Bilirubin 0.3 mg/dL (0.2-1) 01/26/20 06:50 AST 13 U/L (15-37) L 01/26/20 06:50 ALT 12 U/L (13-61) L 01/26/20 06:50 Alkaline Phosphatase 83 U/L (45-117) 01/26/20 06:50 Total Protein 6.8 g/dl (6.4-8.2) 01/26/20 06:50 Albumin 2.9 g/dl (3.4-5.0) L 01/26/20 06:50 CARDIAC ENZYMES Creatine Kinase 35 U/L (26-192) 01/24/20 16:19 Troponin I < 0.02 ng/ml (0.00-0.05) 01/24/20 16:19 Current Medications Generic Name Dose Route Start Last Admin Trade Name Sushila PRN Reason Stop Dose Admin Amlodipine Besylate 5 mg 01/27/20 10:00 01/31/20 09:56 Norvasc - PO 5 mg DAILY [facility] Administration Digoxin 0.125 mg 01/27/20 10:00 01/31/20 09:56 Lanoxin - PO 0.125 mg DAILY STAS Administration Ceftriaxone Sodium 1 gm/ 50 mls @ 100 mls/hr 01/25/20 11:15 01/31/20 09:56 Dextrose IVPB 100 mls/hr DAILY ST[facility] Administration Insulin Aspart 1 vial 01/25/20 16:30 01/31/20 16:49 Novolog Vial Sliding Scale - SQ 2 units TIDAC [facility] Administration Protocol Metformin HCl 500 mg 01/29/20 07:00 01/31/20 06:06 Glucophage Xr - PO 500 mg DAILY@0700 [facility] Administration Rivaroxaban 20 mg 01/27/20 18:00 01/31/20 18:20 Xarelto PO 20 mg DAILY@1800 [facility] Administration Senna/Docusate Sodium 1 tablet 01/26/20 22:00 01/31/20 14:09 Pericolace - PO 1 tablet TID STAS Administration Sitagliptin Phosphate 25 mg 01/29/20 07:00 01/31/20 06:06 Januvia - PO 25 mg DAILY@0700 [facility] Administration Home Medications Medication Instructions Recorded Amlodipine Besylate 5 mg PO DAILY 01/26/20 Digoxin [Lanoxin -] 0.25 mg PO DAILY 01/26/20 Glipizide 10 mg PO DAILY 01/26/20 Omeprazole 40 mg PO DAILY 01/26/20 Rivaroxaban [Xarelto -] 20 mg PO HS 01/26/20 Sennosides/Docusate Sodium [Stool 1 each PO TID 01/26/20 Softener-Laxative Tablet] Microbiology 01/24/20 16:56 Urine - Urine - Catheterized Urine Culture - Final Strep Agalactiae Group B ASSESSMENT AND PLAN: This patient is an 79yof with Pmhx of HTN, type 2 DM, A fib , murmur, GERD , is admintted for AMS who was found to have JULIETTE, hyperkalemia, and possible UTI. #Possible expressive aphagia: will get MRi of the brain r/o stroke acute, neuro consult dr chiu # Acute metabolic encephalopathy. improved. #Acute dehydration: s/p ivf # JULIETTE due to volume depletion: resolved. Monitor off IVF # Electrolyte abnormalities resolved. # Mod-severe protein vinita malnutrition , #Hx of T2DM : on januvia and Metformin as it might not be safe for her to be on Insulin at home with her ( even after she is discharged form rehab ) # UTI: cont ceftriaxone day 12/23 #As per PCP she has A fib, on xarelto and dig. as per her PCP As per son: patient needs to go to rehab. will monitor , once stable will dc the patient
--- NOTE | 2020-01-31 20:25 | PN ---
Physical Exam: SUBJECTIVE: Patient seen and examined bedside. In no acute distress. No events overnight. OBJECTIVE: Vital Signs Period Temp Pulse Resp BP Sys/Collier Pulse Ox Last 24 Hr 97.9 F-99.3 F 71-84 18-18 107-134/52-72 98-99 GENERAL: Awake, alert, in no acute distress. Very thin. HEAD: Normal with no signs of trauma. EYES: PERRL ENT: dry mucous membranes. NECK: No JVD. LUNGS: Breath sounds equal, clear to auscultation bilaterally. HEART: Regular rate and rhythm, with a systolic murmur at apex ABDOMEN: Soft, not distended, mildly tender to palpation EXTREMITIES: warm, well-perfused, no edema Laboratory Results - last 24 hr 01/29/20 01/30/20 01/31/20 18:00 20:57 05:56 WBC RBC Hgb Hct MCV MCH MCHC RDW Plt Count MPV Sodium Potassium Chloride Carbon Dioxide Anion Gap BUN Creatinine Est GFR (CKD-EPI)AfAm Est GFR (CKD-EPI)NonAf POC Glucometer 237 286 Random Glucose Calcium Phosphorus Magnesium COVID-19 (CHERYLE) Not detected 01/31/20 01/31/20 01/31/20 06:00 07:34 11:29 WBC 7.2 RBC 3.25 L Hgb 9.3 L Hct 28.1 L MCV 86.5 MCH 28.6 MCHC 33.1 RDW 14.3 Plt Count 285 MPV 8.9 Sodium 137 Potassium 4.5 Chloride 105 Carbon Dioxide 22 Anion Gap 9 BUN 19.7 H Creatinine 0.9 Est GFR (CKD-EPI)AfAm 69.99 Est GFR (CKD-EPI)NonAf 60.39 POC Glucometer 278 Random Glucose 245 H Calcium 9.5 Phosphorus 3.9 Magnesium 2.0 COVID-19 (CHERYLE) 01/31/20 16:48 WBC RBC Hgb Hct MCV MCH MCHC RDW Plt Count MPV Sodium Potassium Chloride Carbon Dioxide Anion Gap BUN Creatinine Est GFR (CKD-EPI)AfAm Est GFR (CKD-EPI)NonAf POC Glucometer 178 Random Glucose Calcium Phosphorus Magnesium COVID-19 (CHERYLE) Active Medications Generic Name Dose Route Start Last Admin Trade Name Freq PRN Reason Stop Dose Admin Amlodipine Besylate 5 mg 01/27/20 10:00 01/31/20 09:56 Norvasc - PO 5 mg DAILY STAS Administration Digoxin 0.125 mg 01/27/20 10:00 01/31/20 09:56 Lanoxin - PO 0.125 mg DAILY STAS Administration Ceftriaxone Sodium 1 gm/ 50 mls @ 100 mls/hr 01/25/20 11:15 01/31/20 09:56 Dextrose IVPB 100 mls/hr DAILY STAS Administration Insulin Aspart 1 vial 01/25/20 16:30 01/31/20 16:49 Novolog Vial Sliding Scale - SQ 2 units TIDAC STAS Administration Protocol Metformin HCl 500 mg 01/29/20 07:00 01/31/20 06:06 Glucophage Xr - PO 500 mg DAILY@0700 STAS Administration Rivaroxaban 20 mg 01/27/20 18:00 01/31/20 18:20 Xarelto PO 20 mg DAILY@1800 STAS Administration Senna/Docusate Sodium 1 tablet 01/26/20 22:00 01/31/20 14:09 Pericolace - PO 1 tablet TID STAS Administration Sitagliptin Phosphate 25 mg 01/29/20 07:00 01/31/20 06:06 Januvia - PO 25 mg DAILY@0700 STAS Administration ASSESSMENT/PLAN: 79 yo Azeri speaking women with incomplete PMhx due to being extremely hard of hearing and inability for team to speak to family. Suspected T2DM, HTN. She presented with AMS but no clear baseline. She was found to have JULIETTE, hyperkalemia, and possible UTI. She was admitted for metabolic encephalopathy due to UTI with failure to thrive. UTI - UA positive, treating with 1g ceftriaxone - day 7 - cultures + for Strep Agalactiae Group B - RA ordered: showed stones MALNUTRITION - Thiamine given - Monitor and correct electrolytes as needed - speech and swallow have been consulted Consider possibility of Aphasia-Neuro, further radiographic assessment? - Thoracic, lumbar & pelvic Xrays today - no evidence of fractures JULIETTE - due to volume depletion: cr improved with IVF - cont IVF DM - previously on glypizide, holding for now for free of hypoglycemia - managing with sliding scale - started on metformin and januvia today - safer medications for d/c home Hx AFIB - Dr. Bryant confirmed patient is on xarelto and digoxin for hx of Afib - due to lack of speech/interaction and no baseline and possible aphasia noted by speech therapist, ordered MRI of brain to r/o any infarct >> f/u tomorrow Prophylaxis - Sq heparin - Started Xarelto today DISPO Discharge tomorrow to [facility] gave me Son Douglas's number today . I called him with no response. He called back and Dr. Montelongo answered and filled him in briefly. Douglas lives in [place] and agrees his mother needs to go to facility for better care. Gave Son's number to social work. Will try to contact him again tomorrow. Spoke to Dr. Bryant/ he hasn't seen patient in 2-3 years but patient calls for script refills. History he provided: [facility] 3-4 years ago for arrhythmia [facility] around the same time also for arrhythmia Afib dx 3-4 years ago Digoxin & Xaralto for AFIB GERD hx of EGD HTN DM2 Visit type - Emergency Visit Emergency Visit: Yes ED Registration Date: 01/24/20 Care time: The patient presented to the Emergency Department on the above date and was hospitalized for further evaluation of their emergent condition. - New Patient This patient is new to me today: No - Critical Care Critical Care patient: No - Discharge Referral Referred to [facility] Med P.C.: No ATTENDING PHYSICIAN STATEMENT I saw and evaluated the patient. I reviewed the resident's note and discussed the case with the resident. I agree with the resident's findings and plan as documented. SUBJECTIVE: OBJECTIVE: ASSESSMENT AND PLAN:
[2020-01-31] MEDS ORDERED: INSULIN (NOVOLOG) ASPART 100 UNITS/ML 10ML VIAL ONE (21:08)
[2020-02-01] MEDS: INSULIN SLIDING SCALE (NOVOLOG) 1 VIAL SQ SCH ×3 (06:10→17:07)
[2020-02-01] MEDS: SENNOSIDES/DOCUSATE COMBO (SENNA PLUS) TABLET (UD) PO SCH ×3 (06:15→21:49)
[2020-02-01] MEDS ORDERED: DEXTROSE 5%-WATER 100 ML IVPB ONE (10:01)
[2020-02-01] MEDS ORDERED: cefTRIAXone SODIUM 1 GM VIAL ONE (10:01)
[2020-02-01] MEDS: DIGOXIN 0.125 MG TABLET (FP) PO SCH (10:14)
[2020-02-01] MEDS: amLODIPine BESYLATE 5 MG TABLET (FP) PO SCH (10:14)
[2020-02-01] MEDS: CEFTRIAXONE 1 GM in DEXTROSE 5%-WATER 50 ML IVPB SCH (10:15)
--- NOTE | 2020-02-01 11:08 | PN ---
Progress Note, SUPERVISOR MAJOR APPLIANCE ASSEMBLY - Note Progress Note: Repeat CT head -No change MRI pending Pt's presentation is confusing with hearing loss and limited Hungarian. She hears and responds to some questions readily eg name, follows some commands eg close your eyes, and repeats words in Belarusian and Hungarian intermittently, with delay. S he seems to engage well not clearly demonstrating confusion. Speech initiation seems impaired. She rarely speaks. Right facial slightly weaker than left. Moves all extremities.Speech production/voice intake, precise Tolerating reg diet well. r/o Aphasia/Apraxia/impaired speech initiation? Baseline? Brother in law reported she could have conversation in past if "loud" Pending Neurology assessment- If possible, please call me on my cell to attend/assist in assessment Continue Speech tx upon d/c
--- NOTE | 2020-02-01 14:32 | CON.NEURO ---
Consult - Past Medical History ...: No - Smoking History Smoking history: Unknown if ever smoked Home Medications - Allergies Allergies/Adverse Reactions: Allergies Allergy/AdvReac Type Severity Reaction Status Date / Time No Known Allergies Allergy Verified 01/24/20 16:12 - Home Medications Home Medications: Ambulatory Orders Amlodipine Besylate 5 mg PO DAILY 01/26/20 Digoxin [Lanoxin -] 0.25 mg PO DAILY 01/26/20 Glipizide 10 mg PO DAILY 01/26/20 Omeprazole 40 mg PO DAILY 01/26/20 Rivaroxaban [Xarelto -] 20 mg PO HS 01/26/20 Sennosides/Docusate Sodium [Stool Softener-Laxative Tablet] 1 each PO TID 01/26/20 Physical Exam-Neuro Vital Signs: Vital Signs Temperature 98.6 F 02/01/20 13:21 Pulse Rate 79 02/01/20 13:21 Respiratory Rate 18 02/01/20 13:21 Blood Pressure 112/62 02/01/20 13:21 O2 Sat by Pulse Oximetry (%) 97 02/01/20 09:58 Labs: CBC, BMP 01/31/20 07:34 01/31/20 06:00 INR, PTT INR 1.54 (0.83-1.09) H 01/24/20 16:19 Assessment/Plan cc Speech Difficulties since admission HPI 79 year old female , yakut speaking. She has history of HTN,DM,GERD,Murmur. She came with ams , initially thought to be metabolic encephalopathy secondary to uti, hyperkalemia and dehydration. Patient has ct head which was normal. As per family pateint is able to engage in conversion. Though it is not clear , how she is as baseline. There is no seizure like activity. Patient has been able to follow simple command . Dr Bryant- primary physician - hasnt been seen in >5 y. states 30 lb wt loss 5 y ago. endorses DM and HTN. states she had a cardiac murmur in past. [phone] PAST MEDICAL HISTORY: DM,HTN PAST SURGICAL HISTORY: surgical scar below umbilicus but would need further history Social History: unable to obtain Allergies No Known Allergies Allergy (Verified 01/24/20 16:12) HOME MEDICATIONS: Home Medications Medication Instructions Recorded Asceniv 01/24/20 Gabapentin 01/24/20 Nexium 01/24/20 Pataday 01/24/20 Vitamin D - 01/24/20 ROS,FH,SH reviewed in chart NEUROLOGICAL EXAMINATION Alert , opens eye and able to follow simple command she was able to tell me her age but it was not accurate ( she said 73) she told me her name could not tell place or date able to follow simple command ( lift her arms and leg) eomi, ? right facial asymmetry, pupils reactive moving all ext reflex are diminished ct head unremarkable Assessment/Plan Acute stroke vs dementia ( multiinfract vs fronto -teporal type) Plan- cocur with mri of brain - mri showed acute stroke woudl do further work up - continue speech therapy - woudl add aspirin and statin if there is acute stroke - may need rehab - b12,foalte tsh - will continue to follow Thanking you so much Gordon Smith MD
--- NOTE | 2020-02-01 17:12 | PN ---
Teaching Attending Note Name of Resident: Perri Lindsey ATTENDING PHYSICIAN STATEMENT I saw and evaluated the patient. I reviewed the resident's note and discussed the case with the resident. I agree with the resident's findings and plan as documented. SUBJECTIVE: Patient is comfortable with no acute distress, discussed with the that he is not aware of any changes in his conditions. OBJECTIVE: Vital Signs Temperature 98.6 F 02/01/20 13:21 Pulse Rate 79 02/01/20 13:21 Respiratory Rate 18 02/01/20 13:21 Blood Pressure 112/62 02/01/20 13:21 O2 Sat by Pulse Oximetry (%) 97 02/01/20 09:58 PE: per resident's note right facial droop noted, able to eat without any difficulty. CBCD WBC 7.2 K/mm3 (4.0-10.0) 01/31/20 07:34 RBC 3.25 M/mm3 (3.60-5.2) L 01/31/20 07:34 Hgb 9.3 GM/dL (10.7-15.3) L 01/31/20 07:34 Hct 28.1 % (32.4-45.2) L 01/31/20 07:34 MCV 86.5 fl (80-96) 01/31/20 07:34 MCHC 33.1 g/dl (32.0-36.0) 01/31/20 07:34 RDW 14.3 % (11.6-15.6) 01/31/20 07:34 Plt Count 285 K/MM3 (134-434) 01/31/20 07:34 MPV 8.9 fl (7.5-11.1) 01/31/20 07:34 CMP Sodium 137 mmol/L (136-145) 01/31/20 06:00 Potassium 4.5 mmol/L (3.5-5.1) 01/31/20 06:00 Chloride 105 mmol/L (98-107) 01/31/20 06:00 Carbon Dioxide 22 mmol/L (21-32) 01/31/20 06:00 Anion Gap 9 MMOL/L (8-16) 01/31/20 06:00 BUN 19.7 mg/dL (7-18) H 01/31/20 06:00 Creatinine 0.9 mg/dL (0.55-1.3) 01/31/20 06:00 Random Glucose 245 mg/dL (74-106) H 01/31/20 06:00 Calcium 9.5 mg/dL (8.5-10.1) 01/31/20 06:00 Total Bilirubin 0.3 mg/dL (0.2-1) 01/26/20 06:50 AST 13 U/L (15-37) L 01/26/20 06:50 ALT 12 U/L (13-61) L 01/26/20 06:50 Alkaline Phosphatase 83 U/L (45-117) 01/26/20 06:50 Total Protein 6.8 g/dl (6.4-8.2) 01/26/20 06:50 Albumin 2.9 g/dl (3.4-5.0) L 01/26/20 06:50 CARDIAC ENZYMES Creatine Kinase 35 U/L (26-192) 01/24/20 16:19 Troponin I < 0.02 ng/ml (0.00-0.05) 01/24/20 16:19 Current Medications Generic Name Dose Route Start Last Admin Trade Name Sushila PRN Reason Stop Dose Admin Amlodipine Besylate 5 mg 01/27/20 10:00 02/01/20 10:14 Norvasc - PO 5 mg DAILY STAS Administration Digoxin 0.125 mg 01/27/20 10:00 02/01/20 10:14 Lanoxin - PO 0.125 mg DAILY STAS Administration Insulin Aspart 1 vial 01/25/20 16:30 02/01/20 17:07 Novolog Vial Sliding Scale - SQ [facility] Protocol Metformin HCl 500 mg 01/29/20 07:00 02/01/20 06:13 Glucophage Xr - PO 500 mg DAILY@0700 STAS Administration Rivaroxaban 20 mg 01/27/20 18:00 01/31/20 18:20 Xarelto PO 20 mg DAILY@1800 [facility] Administration Senna/Docusate Sodium 1 tablet 01/26/20 22:00 02/01/20 14:07 Pericolace - PO 1 tablet TID STAS Administration Sitagliptin Phosphate 25 mg 01/29/20 07:00 02/01/20 06:15 Januvia - PO 25 mg DAILY@0700 STAS Administration 01/24/20 16:56 Urine - Urine - Catheterized Urine Culture - Final Strep Agalactiae Group B ASSESSMENT AND PLAN: This patient is an 79yof with Pmhx of HTN, type 2 DM, A fib , murmur, GERD , is admintted for AMS who was found to have JULIETTE, hyperkalemia, and possible UTI. #Possible expressive aphagia:Unsure though since paitne tis mainly Armenian SPEAKING, PATIENT WILL GO FOR mri TODAY will get MRi of the brain r/o stroke acute, neuro consult dr chiu # Acute metabolic encephalopathy. improved. #Acute dehydration: s/p ivf # JULIETTE due to volume depletion: resolved. Monitor off IVF # Electrolyte abnormalities resolved. # Mod-severe protein vinita malnutrition , #Hx of T2DM : on januvia and Metformin as it might not be safe for her to be on Insulin at home with her ( even after she is discharged form rehab ) # UTI: cont ceftriaxone day 6 #As per PCP she has A fib, on xarelto and dig. as per her PCP As per son: patient needs to go to rehab. will monitor , once stable will dc the patient HOME VS REHAB
[2020-02-01] MEDS: RIVAROXABAN 20 MG TABLET PO SCH (17:25)
[2020-02-02] MEDS ORDERED: PT OWN MED DRAWER 7, Y5N ONE (06:10)
[2020-02-02] MEDS ORDERED: INSULIN (NOVOLOG) ASPART 100 UNITS/ML 10ML VIAL ONE (06:16)
--- NOTE | 2020-02-02 06:31 | PN ---
Physical Exam: SUBJECTIVE: Patient seen and examined bedside in no acute distress. OBJECTIVE: Vital Signs Period Temp Pulse Resp BP Sys/Collier Pulse Ox Last 24 Hr 97.4 F-98.6 F 66-80 16-18 99-122/51-67 97-99 GENERAL: Awake, alert, in no acute distress. Very thin. HEAD: Normal with no signs of trauma. EYES: PERRL ENT: dry mucous membranes. NECK: No JVD. LUNGS: Breath sounds equal, clear to auscultation bilaterally. HEART: Regular rate and rhythm, with a systolic murmur at apex ABDOMEN: Soft, not distended, mildly tender to palpation EXTREMITIES: warm, well-perfused, no edema Laboratory Results - last 24 hr 02/01/20 02/01/20 02/01/20 11:40 17:06 21:05 POC Glucometer 169 137 Vitamin B12 526 02/02/20 06:20 POC Glucometer 153 Vitamin B12 Active Medications Generic Name Dose Route Start Last Admin Trade Name Freq PRN Reason Stop Dose Admin Amlodipine Besylate 5 mg 01/27/20 10:00 02/01/20 10:14 Norvasc - PO 5 mg DAILY STAS Administration Digoxin 0.125 mg 01/27/20 10:00 02/01/20 10:14 Lanoxin - PO 0.125 mg DAILY STAS Administration Insulin Aspart 1 vial 01/25/20 16:30 02/01/20 17:07 Novolog Vial Sliding Scale - SQ Not Given TIDAC [facility] Protocol Metformin HCl 500 mg 01/29/20 07:00 02/01/20 06:13 Glucophage Xr - PO 500 mg DAILY@0700 STAS Administration Rivaroxaban 20 mg 01/27/20 18:00 02/01/20 17:25 Xarelto PO 20 mg DAILY@1800 STAS Administration Senna/Docusate Sodium 1 tablet 01/26/20 22:00 02/01/20 21:49 Pericolace - PO 1 tablet TID STAS Administration Sitagliptin Phosphate 25 mg 01/29/20 07:00 02/01/20 06:15 Januvia - PO 25 mg DAILY@0700 STAS Administration ASSESSMENT/PLAN: 79 yo Indonesian speaking women with incomplete PMhx due to being extremely hard of hearing and inability for team to speak to family. Suspected T2DM, HTN. She presented with AMS but no clear baseline. She was found to have JULIETTE, hyperkalemia, and possible UTI. She was admitted for metabolic encephalopathy due to UTI with failure to thrive. Hx AFIB - Dr. Bryant confirmed patient is on xarelto and digoxin for hx of Afib - due to lack of speech/interaction and no baseline and possible aphasia noted by speech therapist, ordered MRI of brain today, had issues yesterday with consent due to patient's lack of speech and ability to ask questions. Today had give consent. f/u UTI - UA positive, treating with 1g ceftriaxone - day 8 - cultures + for Strep Agalactiae Group B - RA ordered: showed stones MALNUTRITION - Thiamine given - Monitor and correct electrolytes as needed - speech and swallow have been consulted Consider possibility of Aphasia-Neuro, further radiographic assessment? - Thoracic, lumbar & pelvic Xrays today - no evidence of fractures JULIETTE - due to volume depletion: cr improved with IVF - cont IVF DM - previously on glypizide, holding for now for free of hypoglycemia - managing with sliding scale - started on metformin and januvia - safer medications for d/c home Prophylaxis - Sq heparin - Started Xarelto today DISPO Discharge tomorrow to [facility] gave me Son Douglas's number today . I called him with no response. He called back and Dr. Montelongo answered and filled him in briefly. Douglas lives in [place] and agrees his mother needs to go to facility for better care. Gave Son's number to social work. Will try to contact him again tomorrow. Spoke to Dr. Bryant/ he hasn't seen patient in 2-3 years but patient calls for script refills. History he provided: [facility] 3-4 years ago for arrhythmia [facility] around the same time also for arrhythmia Afib dx 3-4 years ago Digoxin & Xaralto for AFIB GERD hx of EGD HTN DM2 Visit type - Emergency Visit Emergency Visit: Yes ED Registration Date: 01/24/20 Care time: The patient presented to the Emergency Department on the above date and was hospitalized for further evaluation of their emergent condition. - New Patient This patient is new to me today: No - Critical Care Critical Care patient: No - Discharge Referral Referred to [facility] Med P.C.: No ATTENDING PHYSICIAN STATEMENT I saw and evaluated the patient. I reviewed the resident's note and discussed the case with the resident. I agree with the resident's findings and plan as documented. SUBJECTIVE: OBJECTIVE: ASSESSMENT AND PLAN:
[2020-02-02] MEDS: INSULIN SLIDING SCALE (NOVOLOG) 1 VIAL SQ SCH ×3 (06:59→16:29)
[2020-02-02] MEDS: SENNOSIDES/DOCUSATE COMBO (SENNA PLUS) TABLET (UD) PO SCH ×2 (06:59→14:51)
[2020-02-02 08:33] LABS: HEMATOCRIT 28.3 % (32.4-45.2); HEMOGLOBIN 9.5 GM/dL (10.7-15.3); MCH 29.1 pg (25.7-33.7); MCHC 33.4 g/dl (32.0-36.0); MEAN CELL VOLUME 87.1 fl (80-96); PLATELET COUNT 295 K/MM3 (134-434); RBC 3.26 M/mm3 (3.60-5.2); RDW 14.9 % (11.6-15.6); WHITE BLOOD COUNT 5.9 K/mm3 (4.0-10.0)
[2020-02-02 09:03] LABS: POTASSIUM 4.9 mmol/L (3.5-5.1)
[2020-02-02 09:24] LABS: CALCIUM 9.6 mg/dL (8.5-10.1); CREATININE 0.8 mg/dL (0.55-1.3); MAGNESIUM 2.4 mg/dL (1.8-2.4); PHOSPHOROUS 4.1 mg/dL (2.5-4.9)
[2020-02-02] MEDS: amLODIPine BESYLATE 5 MG TABLET (FP) PO SCH (10:29)
[2020-02-02] MEDS: DIGOXIN 0.125 MG TABLET (FP) PO SCH (10:29)
--- NOTE | 2020-02-02 11:06 | PN ---
Progress Note, CUSTOM DESIGNER - Note Progress Note: MRI (-) for acute CVA. Mildly increased M/V changes could increase cognitive/l anguage deficits. Neurology note appreciated. Possible baseline DEmentia, with h/o impaired speech initiation,not known/communicated to us? Suggest f/u by speech pathology at [place]
--- NOTE | 2020-02-02 12:55 | PN ---
Progress Note (short form) - Note Progress Note: 79 year old female , yakut speaking. She has history of HTN,DM,GERD,Murmur. She came with ams , initially thought to be metabolic encephalopathy secondary to uti, hyperkalemia and dehydration. Patient has ct head which was normal. As per family pateint is able to engage in conversion. Though it is not clear , how she is as baseline. There is no seizure like activity. Patient has been able to follow simple command . Spoke to nursing staff. There is no new complain NEUROLOGICAL EXAMINATION Alert , opens eye and able to follow simple command she was able to tell me her age but it was not accurate ( she said 73) she told me her name could not tell place or date able to follow simple command ( lift her arms and leg) eomi, ? right facial asymmetry, pupils reactive moving all ext reflex are diminished ct head unremarkable Assessment/Plan Most likely patient has Dementia ( Frontotemporal vs alzhiemer ) no evidence of acute stroke Plan- - continue speech therapy - may need rehab - continue supportive care - will continue to follow Thanking you so much Gordon Smith MD
[2020-02-02 15:04] VITALS: BP 124/68; PULSE 77; TEMP 99
--- NOTE | 2020-02-02 18:09 | PN ---
Teaching Attending Note Name of Resident: Perri Lindsey ATTENDING PHYSICIAN STATEMENT I saw and evaluated the patient. I reviewed the resident's note and discussed the case with the resident. I agree with the resident's findings and plan as documented. SUBJECTIVE: Patient is comfortable with no acute distress. OBJECTIVE: Vital Signs Temperature 99.0 F 02/02/20 15:03 Pulse Rate 77 02/02/20 15:03 Respiratory Rate 20 02/02/20 15:03 Blood Pressure 124/68 02/02/20 15:03 O2 Sat by Pulse Oximetry (%) 98 02/02/20 09:08 PE: per resident's note CBCD WBC 5.9 K/mm3 (4.0-10.0) 02/02/20 07:25 RBC 3.26 M/mm3 (3.60-5.2) L 02/02/20 07:25 Hgb 9.5 GM/dL (10.7-15.3) L 02/02/20 07:25 Hct 28.3 % (32.4-45.2) L 02/02/20 07:25 MCV 87.1 fl (80-96) 02/02/20 07:25 MCHC 33.4 g/dl (32.0-36.0) 02/02/20 07:25 RDW 14.9 % (11.6-15.6) 02/02/20 07:25 Plt Count 295 K/MM3 (134-434) 02/02/20 07:25 MPV 9.0 fl (7.5-11.1) 02/02/20 07:25 CMP Sodium 138 mmol/L (136-145) 02/02/20 07:25 Potassium 4.9 mmol/L (3.5-5.1) 02/02/20 07:25 Chloride 108 mmol/L (98-107) H 02/02/20 07:25 Carbon Dioxide 22 mmol/L (21-32) 02/02/20 07:25 Anion Gap 8 MMOL/L (8-16) 02/02/20 07:25 BUN 14.0 mg/dL (7-18) 02/02/20 07:25 Creatinine 0.8 mg/dL (0.55-1.3) 02/02/20 07:25 Random Glucose 151 mg/dL (74-106) H 02/02/20 07:25 Calcium 9.6 mg/dL (8.5-10.1) 02/02/20 07:25 Total Bilirubin 0.3 mg/dL (0.2-1) 01/26/20 06:50 AST 13 U/L (15-37) L 01/26/20 06:50 ALT 12 U/L (13-61) L 01/26/20 06:50 Alkaline Phosphatase 83 U/L (45-117) 01/26/20 06:50 Total Protein 6.8 g/dl (6.4-8.2) 01/26/20 06:50 Albumin 2.9 g/dl (3.4-5.0) L 01/26/20 06:50 CARDIAC ENZYMES Creatine Kinase 35 U/L (26-192) 01/24/20 16:19 Troponin I < 0.02 ng/ml (0.00-0.05) 01/24/20 16:19 Current Medications Generic Name Dose Route Start Last Admin Trade Name Sushila PRN Reason Stop Dose Admin Amlodipine Besylate 5 mg 01/27/20 10:00 02/02/20 10:29 Norvasc - PO 5 mg DAILY STAS Administration Atorvastatin Calcium 20 mg 02/02/20 22:00 Lipitor - PO HS STAS Digoxin 0.125 mg 01/27/20 10:00 02/02/20 10:29 Lanoxin - PO 0.125 mg DAILY STAS Administration Insulin Aspart 1 vial 01/25/20 16:30 02/02/20 16:29 Novolog Vial Sliding Scale - SQ 2 units TIDAC STAS Administration Protocol Metformin HCl 500 mg 01/29/20 07:00 02/02/20 06:58 Glucophage Xr - PO 500 mg DAILY@0700 STAS Administration Rivaroxaban 20 mg 01/27/20 18:00 02/01/20 17:25 Xarelto PO 20 mg DAILY@1800 [facility] Administration Senna/Docusate Sodium 1 tablet 01/26/20 22:00 02/02/20 14:51 Pericolace - PO 1 tablet TID STAS Administration Sitagliptin Phosphate 25 mg 01/29/20 07:00 02/02/20 06:59 Januvia - PO 25 mg DAILY@0700 STAS Administration Home Medications Medication Instructions Recorded Omeprazole 40 mg PO DAILY 01/26/20 Rivaroxaban [Xarelto -] 20 mg PO HS 01/26/20 Sennosides/Docusate Sodium [Stool 1 each PO TID 01/26/20 Softener-Laxative Tablet] Amlodipine Besylate [Norvasc -] 5 mg PO DAILY tablet 02/02/20 Atorvastatin Ca [Lipitor] 20 mg PO HS tablet 02/02/20 Digoxin [Lanoxin -] 0.125 mg PO DAILY tablet 02/02/20 Insulin Sliding Scale [Novolog 1 vial SQ TIDAC units 02/02/20 Vial Sliding Scale -] Sitagliptin Phosphate [Januvia -] 25 mg PO DAILY@0700 tab 02/02/20 metFORMIN XR [Glucophage Xr -] 500 mg PO DAILY@0700 tab.sr.24h 02/02/20 01/24/20 16:56 Urine - Urine - Catheterized Urine Culture - Final Strep Agalactiae Group B MRI: no acute infarct a 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 #Possible expressive aphagia:Unsure though since paitne tis mainly Amharic SPEAKING, s/p mri result as above, neuro consult dr chiu appreciated MRI: negative for acute stroke. # Acute metabolic encephalopathy. improved. #Acute dehydration: s/p ivf # JULIETTE due to volume depletion: resolved. Monitor off IVF # Electrolyte abnormalities resolved. # Mod-severe protein vinita malnutrition , #Hx of T2DM : on januvia and Metformin # UTI: cont ceftriaxone day 01/22 #As per PCP she has A fib, on xarelto and dig. as per her PCP dc the patient to REHAB
--- NOTE | 2020-02-02 18:19 | DS ---
Physical Exam: SUBJECTIVE: Patient seen and examined beside. In no distress. No events overnight. OBJECTIVE: Vital Signs Period Temp Pulse Resp BP Sys/Collier Pulse Ox Last 24 Hr 97.4 F-99.0 F 66-77 18-20 99-124/51-68 98-99 PHYSICAL EXAM GENERAL: Awake, alert, in no acute distress. Very thin. HEAD: Normal with no signs of trauma. EYES: PERRL ENT: dry mucous membranes. NECK: No JVD. LUNGS: Breath sounds equal, clear to auscultation bilaterally. HEART: Regular rate and rhythm, with a systolic murmur at apex ABDOMEN: Soft, not distended, mildly tender to palpation EXTREMITIES: warm, well-perfused, no edema LABS Laboratory Tests 01/24/20 01/24/20 01/24/20 16:19 16:19 16:19 WBC 7.7 RBC 4.09 Hgb 11.6 Hct 35.2 MCV 86.0 MCH 28.3 MCHC 33.0 RDW 14.4 Plt Count 330 MPV 8.8 Absolute Neuts (auto) 4.6 Neutrophils % 59.8 Lymphocytes % 30.7 Monocytes % 8.0 Eosinophils % 1.0 Basophils % 0.5 Nucleated RBC % 0 PT with INR 18.20 H INR 1.54 H PTT (Actin FS) 28.4 Sodium 130 L Potassium 5.6 H Chloride 94 L Carbon Dioxide 25 Anion Gap 11 BUN 27.7 H Creatinine 1.4 H Est GFR (CKD-EPI)AfAm 41.03 Est GFR (CKD-EPI)NonAf 35.40 POC Glucometer Random Glucose 223 H Hemoglobin A1c % Calcium 9.3 Phosphorus Magnesium Total Bilirubin 0.4 AST 12 L ALT 20 Alkaline Phosphatase 98 Creatine Kinase 35 Troponin I < 0.02 Total Protein 8.1 Albumin 3.6 Vitamin B12 Folate Folate Hemolysate TSH Urine Color Urine Appearance Urine pH Ur Specific [place] Urine Protein Urine Glucose (UA) Urine Ketones Urine Blood Urine Nitrite Urine Bilirubin Urine Urobilinogen Ur Leukocyte Esterase Urine WBC (Auto) Urine RBC (Auto) Urine Casts (Auto) U Epithel Cells (Auto) Urine Bacteria (Auto) Digoxin COVID-19 (CHERYLE) 01/24/20 01/24/20 01/24/20 16:56 17:05 18:29 WBC RBC Hgb Hct MCV MCH MCHC RDW Plt Count MPV Absolute Neuts (auto) Neutrophils % Lymphocytes % Monocytes % Eosinophils % Basophils % Nucleated RBC % PT with INR INR PTT (Actin FS) Sodium Potassium Chloride Carbon Dioxide Anion Gap BUN Creatinine Est GFR (CKD-EPI)AfAm Est GFR (CKD-EPI)NonAf POC Glucometer 237 Random Glucose Hemoglobin A1c % Calcium Phosphorus Magnesium Total Bilirubin AST ALT Alkaline Phosphatase Creatine Kinase Troponin I Total Protein Albumin Vitamin B12 Folate Folate Hemolysate TSH Urine Color Yellow Urine Appearance Clear Urine pH 5.0 Ur Specific [place] 1.017 Urine Protein 2+ H Urine Glucose (UA) 2+ H Urine Ketones Trace H Urine Blood Negative Urine Nitrite Negative Urine Bilirubin Negative Urine Urobilinogen 1.0 Ur Leukocyte Esterase Trace Urine WBC (Auto) 40 Urine RBC (Auto) 6 Urine Casts (Auto) 4 U Epithel Cells (Auto) 24 Urine Bacteria (Auto) 184 Digoxin COVID-19 (CHERYLE) Not detected 01/24/20 01/24/20 01/25/20 20:10 21:49 02:50 WBC 10.3 H RBC 3.71 Hgb 10.6 L Hct 31.8 L MCV 85.6 MCH 28.5 MCHC 33.3 RDW 14.3 Plt Count 302 MPV 8.6 Absolute Neuts (auto) 7.3 Neutrophils % 70.4 Lymphocytes % 20.9 D Monocytes % 7.5 Eosinophils % 0.8 Basophils % 0.4 Nucleated RBC % 0 PT with INR INR PTT (Actin FS) Sodium 129 L Potassium 6.6 H* Chloride 96 L Carbon Dioxide 24 Anion Gap 8 BUN 26.0 H Creatinine 1.3 Est GFR (CKD-EPI)AfAm 44.87 Est GFR (CKD-EPI)NonAf 38.71 POC Glucometer 217 Random Glucose 219 H Hemoglobin A1c % Calcium 8.4 L Phosphorus Magnesium Total Bilirubin AST ALT Alkaline Phosphatase Creatine Kinase Troponin I Total Protein Albumin Vitamin B12 Folate Folate Hemolysate TSH Urine Color Urine Appearance Urine pH Ur Specific [place] Urine Protein Urine Glucose (UA) Urine Ketones Urine Blood Urine Nitrite Urine Bilirubin Urine Urobilinogen Ur Leukocyte Esterase Urine WBC (Auto) Urine RBC (Auto) Urine Casts (Auto) U Epithel Cells (Auto) Urine Bacteria (Auto) Digoxin COVID-19 (CHERYLE) 01/25/20 01/25/20 01/25/20 02:50 08:11 08:30 WBC RBC Hgb Hct MCV MCH MCHC RDW Plt Count MPV Absolute Neuts (auto) Neutrophils % Lymphocytes % Monocytes % Eosinophils % Basophils % Nucleated RBC % PT with INR INR PTT (Actin FS) Sodium 134 L 132 L Potassium 4.0 4.7 Chloride 101 100 Carbon Dioxide 26 25 Anion Gap 7 L 6 L BUN 21.8 H 19.7 H Creatinine 1.1 1.0 Est GFR (CKD-EPI)AfAm 54.91 61.62 Est GFR (CKD-EPI)NonAf 47.38 53.17 POC Glucometer 141 Random Glucose 134 H 229 H Hemoglobin A1c % Calcium 8.7 8.4 L Phosphorus 3.6 Magnesium 2.4 Total Bilirubin 0.4 AST 9 L ALT 16 Alkaline Phosphatase 92 Creatine Kinase Troponin I Total Protein 7.2 Albumin 3.0 L Vitamin B12 Folate Folate Hemolysate TSH 0.39 Urine Color Urine Appearance Urine pH Ur Specific [place] Urine Protein Urine Glucose (UA) Urine Ketones Urine Blood Urine Nitrite Urine Bilirubin Urine Urobilinogen Ur Leukocyte Esterase Urine WBC (Auto) Urine RBC (Auto) Urine Casts (Auto) U Epithel Cells (Auto) Urine Bacteria (Auto) Digoxin COVID-19 (CHERYLE) 01/25/20 01/25/20 01/25/20 10:18 10:18 11:07 WBC 7.9 RBC 3.59 L Hgb 10.3 L Hct 30.9 L MCV 86.1 MCH 28.7 MCHC 33.3 RDW 14.2 Plt Count 296 MPV 8.5 Absolute Neuts (auto) 5.7 Neutrophils % 72.8 Lymphocytes % 19.4 Monocytes % 6.9 Eosinophils % 0.6 Basophils % 0.3 Nucleated RBC % 0 PT with INR INR PTT (Actin FS) Sodium Potassium Chloride Carbon Dioxide Anion Gap BUN Creatinine Est GFR (CKD-EPI)AfAm Est GFR (CKD-EPI)NonAf POC Glucometer 217 Random Glucose Hemoglobin A1c % 12.6 H Calcium Phosphorus Magnesium Total Bilirubin AST ALT Alkaline Phosphatase Creatine Kinase Troponin I Total Protein Albumin Vitamin B12 Folate Folate Hemolysate TSH Urine Color Urine Appearance Urine pH Ur Specific [place] Urine Protein Urine Glucose (UA) Urine Ketones Urine Blood Urine Nitrite Urine Bilirubin Urine Urobilinogen Ur Leukocyte Esterase Urine WBC (Auto) Urine RBC (Auto) Urine Casts (Auto) U Epithel Cells (Auto) Urine Bacteria (Auto) Digoxin COVID-19 (CHERYLE) 01/25/20 01/25/20 01/26/20 17:05 17:40 06:16 WBC RBC Hgb Hct MCV MCH MCHC RDW Plt Count MPV Absolute Neuts (auto) Neutrophils % Lymphocytes % Monocytes % Eosinophils % Basophils % Nucleated RBC % PT with INR INR PTT (Actin FS) Sodium 134 L Potassium 5.3 H Chloride 101 Carbon Dioxide 25 Anion Gap 8 BUN 18.4 H Creatinine 1.1 Est GFR (CKD-EPI)AfAm 54.91 Est GFR (CKD-EPI)NonAf 47.38 POC Glucometer 137 148 Random Glucose 140 H Hemoglobin A1c % Calcium 8.8 Phosphorus 3.7 Magnesium 2.6 H Total Bilirubin AST ALT Alkaline Phosphatase Creatine Kinase Troponin I Total Protein Albumin Vitamin B12 Folate Folate Hemolysate TSH Urine Color Urine Appearance Urine pH Ur Specific [place] Urine Protein Urine Glucose (UA) Urine Ketones Urine Blood Urine Nitrite Urine Bilirubin Urine Urobilinogen Ur Leukocyte Esterase Urine WBC (Auto) Urine RBC (Auto) Urine Casts (Auto) U Epithel Cells (Auto) Urine Bacteria (Auto) Digoxin COVID-19 (CHERYLE) 01/26/20 01/26/20 01/26/20 06:50 06:50 11:20 WBC 4.9 RBC 3.39 L Hgb 9.7 L Hct 29.2 L MCV 86.1 MCH 28.6 MCHC 33.3 RDW 14.4 Plt Count 287 MPV 8.9 Absolute Neuts (auto) 2.4 Neutrophils % 48.4 D Lymphocytes % 39.1 D Monocytes % 9.3 Eosinophils % 2.4 D Basophils % 0.8 Nucleated RBC % 0 PT with INR INR PTT (Actin FS) Sodium 136 Potassium 4.5 Chloride 105 Carbon Dioxide 25 Anion Gap 6 L BUN 12.9 Creatinine 0.9 Est GFR (CKD-EPI)AfAm 69.99 Est GFR (CKD-EPI)NonAf 60.39 POC Glucometer 291 Random Glucose 161 H Hemoglobin A1c % Calcium 8.5 Phosphorus 3.4 Magnesium 2.5 H Total Bilirubin 0.3 AST 13 L ALT 12 L Alkaline Phosphatase 83 Creatine Kinase Troponin I Total Protein 6.8 Albumin 2.9 L Vitamin B12 Folate Folate Hemolysate TSH Urine Color Urine Appearance Urine pH Ur Specific [place] Urine Protein Urine Glucose (UA) Urine Ketones Urine Blood Urine Nitrite Urine Bilirubin Urine Urobilinogen Ur Leukocyte Esterase Urine WBC (Auto) Urine RBC (Auto) Urine Casts (Auto) U Epithel Cells (Auto) Urine Bacteria (Auto) Digoxin COVID-19 (CHERYLE) 01/26/20 01/27/20 01/27/20 16:24 06:19 08:09 WBC RBC Hgb Hct MCV MCH MCHC RDW Plt Count MPV Absolute Neuts (auto) Neutrophils % Lymphocytes % Monocytes % Eosinophils % Basophils % Nucleated RBC % PT with INR INR PTT (Actin FS) Sodium Potassium Chloride Carbon Dioxide Anion Gap BUN Creatinine Est GFR (CKD-EPI)AfAm Est GFR (CKD-EPI)NonAf POC Glucometer 203 200 Random Glucose Hemoglobin A1c % Calcium Phosphorus Magnesium Total Bilirubin AST ALT Alkaline Phosphatase Creatine Kinase Troponin I Total Protein Albumin Vitamin B12 Folate Folate Hemolysate TSH Urine Color Urine Appearance Urine pH Ur Specific [place] Urine Protein Urine Glucose (UA) Urine Ketones Urine Blood Urine Nitrite Urine Bilirubin Urine Urobilinogen Ur Leukocyte Esterase Urine WBC (Auto) Urine RBC (Auto) Urine Casts (Auto) U Epithel Cells (Auto) Urine Bacteria (Auto) Digoxin 1.00 COVID-19 (CHERYLE) 01/27/20 01/27/20 01/27/20 08:09 08:09 11:55 WBC 5.3 RBC 3.37 L Hgb 9.8 L Hct 29.4 L MCV 87.3 MCH 29.0 MCHC 33.2 RDW 14.2 Plt Count 283 MPV 8.9 Absolute Neuts (auto) Neutrophils % Lymphocytes % Monocytes % Eosinophils % Basophils % Nucleated RBC % PT with INR INR PTT (Actin FS) Sodium 137 Potassium 4.1 Chloride 105 Carbon Dioxide 24 Anion Gap 8 BUN 7.5 Creatinine 0.8 Est GFR (CKD-EPI)AfAm 80.70 Est GFR (CKD-EPI)NonAf 69.63 POC Glucometer 222 Random Glucose 114 H Hemoglobin A1c % Calcium 8.8 Phosphorus 3.0 Magnesium 2.2 Total Bilirubin AST ALT Alkaline Phosphatase Creatine Kinase Troponin I Total Protein Albumin Vitamin B12 Folate Folate Hemolysate TSH Urine Color Urine Appearance Urine pH Ur Specific [place] Urine Protein Urine Glucose (UA) Urine Ketones Urine Blood Urine Nitrite Urine Bilirubin Urine Urobilinogen Ur Leukocyte Esterase Urine WBC (Auto) Urine RBC (Auto) Urine Casts (Auto) U Epithel Cells (Auto) Urine Bacteria (Auto) Digoxin COVID-19 (CHERYLE) 01/27/20 01/27/20 01/28/20 17:21 20:09 06:08 WBC RBC Hgb Hct MCV MCH MCHC RDW Plt Count MPV Absolute Neuts (auto) Neutrophils % Lymphocytes % Monocytes % Eosinophils % Basophils % Nucleated RBC % PT with INR INR PTT (Actin FS) Sodium Potassium Chloride Carbon Dioxide Anion Gap BUN Creatinine Est GFR (CKD-EPI)AfAm Est GFR (CKD-EPI)NonAf POC Glucometer 189 228 207 Random Glucose Hemoglobin A1c % Calcium Phosphorus Magnesium Total Bilirubin AST ALT Alkaline Phosphatase Creatine Kinase Troponin I Total Protein Albumin Vitamin B12 Folate Folate Hemolysate TSH Urine Color Urine Appearance Urine pH Ur Specific [place] Urine Protein Urine Glucose (UA) Urine Ketones Urine Blood Urine Nitrite Urine Bilirubin Urine Urobilinogen Ur Leukocyte Esterase Urine WBC (Auto) Urine RBC (Auto) Urine Casts (Auto) U Epithel Cells (Auto) Urine Bacteria (Auto) Digoxin COVID-19 (CHERYLE) 01/28/20 01/28/20 01/28/20 11:52 17:12 21:15 WBC RBC Hgb Hct MCV MCH MCHC RDW Plt Count MPV Absolute Neuts (auto) Neutrophils % Lymphocytes % Monocytes % Eosinophils % Basophils % Nucleated RBC % PT with INR INR PTT (Actin FS) Sodium Potassium Chloride Carbon Dioxide Anion Gap BUN Creatinine Est GFR (CKD-EPI)AfAm Est GFR (CKD-EPI)NonAf POC Glucometer 250 256 292 Random Glucose Hemoglobin A1c % Calcium Phosphorus Magnesium Total Bilirubin AST ALT Alkaline Phosphatase Creatine Kinase Troponin I Total Protein Albumin Vitamin B12 Folate Folate Hemolysate TSH Urine Color Urine Appearance Urine pH Ur Specific [place] Urine Protein Urine Glucose (UA) Urine Ketones Urine Blood Urine Nitrite Urine Bilirubin Urine Urobilinogen Ur Leukocyte Esterase Urine WBC (Auto) Urine RBC (Auto) Urine Casts (Auto) U Epithel Cells (Auto) Urine Bacteria (Auto) Digoxin COVID-19 (CHERYLE) 01/29/20 01/29/20 01/29/20 06:14 06:53 06:53 WBC 5.6 RBC 3.44 L Hgb 9.8 L Hct 29.6 L MCV 86.2 MCH 28.5 MCHC 33.0 RDW 14.6 Plt Count 271 MPV 8.9 Absolute Neuts (auto) Neutrophils % Lymphocytes % Monocytes % Eosinophils % Basophils % Nucleated RBC % PT with INR INR PTT (Actin FS) Sodium 137 Potassium 4.3 Chloride 104 Carbon Dioxide 25 Anion Gap 9 BUN 14.8 Creatinine 1.1 Est GFR (CKD-EPI)AfAm 54.91 Est GFR (CKD-EPI)NonAf 47.38 POC Glucometer 265 Random Glucose 282 H Hemoglobin A1c % Calcium 8.9 Phosphorus 3.9 Magnesium 2.1 Total Bilirubin AST ALT Alkaline Phosphatase Creatine Kinase Troponin I Total Protein Albumin Vitamin B12 Folate Folate Hemolysate TSH Urine Color Urine Appearance Urine pH Ur Specific [place] Urine Protein Urine Glucose (UA) Urine Ketones Urine Blood Urine Nitrite Urine Bilirubin Urine Urobilinogen Ur Leukocyte Esterase Urine WBC (Auto) Urine RBC (Auto) Urine Casts (Auto) U Epithel Cells (Auto) Urine Bacteria (Auto) Digoxin COVID-19 (CHERYLE) 01/29/20 01/29/20 01/29/20 11:26 16:16 18:00 WBC RBC Hgb Hct MCV MCH MCHC RDW Plt Count MPV Absolute Neuts (auto) Neutrophils % Lymphocytes % Monocytes % Eosinophils % Basophils % Nucleated RBC % PT with INR INR PTT (Actin FS) Sodium Potassium Chloride Carbon Dioxide Anion Gap BUN Creatinine Est GFR (CKD-EPI)AfAm Est GFR (CKD-EPI)NonAf POC Glucometer 226 228 Random Glucose Hemoglobin A1c % Calcium Phosphorus Magnesium Total Bilirubin AST ALT Alkaline Phosphatase Creatine Kinase Troponin I Total Protein Albumin Vitamin B12 Folate Folate Hemolysate TSH Urine Color Urine Appearance Urine pH Ur Specific [place] Urine Protein Urine Glucose (UA) Urine Ketones Urine Blood Urine Nitrite Urine Bilirubin Urine Urobilinogen Ur Leukocyte Esterase Urine WBC (Auto) Urine RBC (Auto) Urine Casts (Auto) U Epithel Cells (Auto) Urine Bacteria (Auto) Digoxin COVID-19 (CHERYLE) Not detected 01/30/20 01/30/20 01/30/20 05:53 07:00 07:00 WBC 6.9 RBC 3.31 L Hgb 9.2 L Hct 28.5 L MCV 86.1 MCH 27.9 MCHC 32.4 RDW 14.4 Plt Count 262 MPV 8.8 Absolute Neuts (auto) Neutrophils % Lymphocytes % Monocytes % Eosinophils % Basophils % Nucleated RBC % PT with INR INR PTT (Actin FS) Sodium Potassium Chloride Carbon Dioxide Anion Gap BUN Creatinine Est GFR (CKD-EPI)AfAm Est GFR (CKD-EPI)NonAf POC Glucometer 300 Random Glucose Hemoglobin A1c % Calcium Phosphorus Magnesium Total Bilirubin AST ALT Alkaline Phosphatase Creatine Kinase Troponin I Total Protein Albumin Vitamin B12 Folate Folate Hemolysate TSH Urine Color Urine Appearance Urine pH Ur Specific [place] Urine Protein Urine Glucose (UA) Urine Ketones Urine Blood Urine Nitrite Urine Bilirubin Urine Urobilinogen Ur Leukocyte Esterase Urine WBC (Auto) Urine RBC (Auto) Urine Casts (Auto) U Epithel Cells (Auto) Urine Bacteria (Auto) Digoxin 0.67 L COVID-19 (CHERYLE) 01/30/20 01/30/20 01/30/20 07:00 08:00 11:30 WBC RBC Hgb Hct MCV MCH MCHC RDW Plt Count MPV Absolute Neuts (auto) Neutrophils % Lymphocytes % Monocytes % Eosinophils % Basophils % Nucleated RBC % PT with INR INR PTT (Actin FS) Sodium 138 Potassium 4.2 Chloride 104 Carbon Dioxide 23 Anion Gap 11 BUN 21.2 H Creatinine 1.0 Est GFR (CKD-EPI)AfAm 61.62 Est GFR (CKD-EPI)NonAf 53.17 POC Glucometer 255 Random Glucose 309 H Hemoglobin A1c % Calcium 9.3 Phosphorus 4.9 Magnesium 1.9 Total Bilirubin AST ALT Alkaline Phosphatase Creatine Kinase Troponin I Total Protein Albumin Vitamin B12 Folate Folate Hemolysate TSH Urine Color Urine Appearance Urine pH Ur Specific [place] Urine Protein Urine Glucose (UA) Urine Ketones Urine Blood Urine Nitrite Urine Bilirubin Urine Urobilinogen Ur Leukocyte Esterase Urine WBC (Auto) Urine RBC (Auto) Urine Casts (Auto) U Epithel Cells (Auto) Urine Bacteria (Auto) Digoxin Cancelled COVID-19 (CHERYLE) 01/30/20 01/30/20 01/31/20 16:37 20:57 05:56 WBC RBC Hgb Hct MCV MCH MCHC RDW Plt Count MPV Absolute Neuts (auto) Neutrophils % Lymphocytes % Monocytes % Eosinophils % Basophils % Nucleated RBC % PT with INR INR PTT (Actin FS) Sodium Potassium Chloride Carbon Dioxide Anion Gap BUN Creatinine Est GFR (CKD-EPI)AfAm Est GFR (CKD-EPI)NonAf POC Glucometer 228 237 286 Random Glucose Hemoglobin A1c % Calcium Phosphorus Magnesium Total Bilirubin AST ALT Alkaline Phosphatase Creatine Kinase Troponin I Total Protein Albumin Vitamin B12 Folate Folate Hemolysate TSH Urine Color Urine Appearance Urine pH Ur Specific [place] Urine Protein Urine Glucose (UA) Urine Ketones Urine Blood Urine Nitrite Urine Bilirubin Urine Urobilinogen Ur Leukocyte Esterase Urine WBC (Auto) Urine RBC (Auto) Urine Casts (Auto) U Epithel Cells (Auto) Urine Bacteria (Auto) Digoxin COVID-19 (CHERYLE) 01/31/20 01/31/20 01/31/20 06:00 07:34 11:29 WBC 7.2 RBC 3.25 L Hgb 9.3 L Hct 28.1 L MCV 86.5 MCH 28.6 MCHC 33.1 RDW 14.3 Plt Count 285 MPV 8.9 Absolute Neuts (auto) Neutrophils % Lymphocytes % Monocytes % Eosinophils % Basophils % Nucleated RBC % PT with INR INR PTT (Actin FS) Sodium 137 Potassium 4.5 Chloride 105 Carbon Dioxide 22 Anion Gap 9 BUN 19.7 H Creatinine 0.9 Est GFR (CKD-EPI)AfAm 69.99 Est GFR (CKD-EPI)NonAf 60.39 POC Glucometer 278 Random Glucose 245 H Hemoglobin A1c % Calcium 9.5 Phosphorus 3.9 Magnesium 2.0 Total Bilirubin AST ALT Alkaline Phosphatase Creatine Kinase Troponin I Total Protein Albumin Vitamin B12 Folate Folate Hemolysate TSH Urine Color Urine Appearance Urine pH Ur Specific [place] Urine Protein Urine Glucose (UA) Urine Ketones Urine Blood Urine Nitrite Urine Bilirubin Urine Urobilinogen Ur Leukocyte Esterase Urine WBC (Auto) Urine RBC (Auto) Urine Casts (Auto) U Epithel Cells (Auto) Urine Bacteria (Auto) Digoxin COVID-19 (CHERYLE) 01/31/20 01/31/20 02/01/20 16:48 21:03 06:05 WBC RBC Hgb Hct MCV MCH MCHC RDW Plt Count MPV Absolute Neuts (auto) Neutrophils % Lymphocytes % Monocytes % Eosinophils % Basophils % Nucleated RBC % PT with INR INR PTT (Actin FS) Sodium Potassium Chloride Carbon Dioxide Anion Gap BUN Creatinine Est GFR (CKD-EPI)AfAm Est GFR (CKD-EPI)NonAf POC Glucometer 178 196 229 Random Glucose Hemoglobin A1c % Calcium Phosphorus Magnesium Total Bilirubin AST ALT Alkaline Phosphatase Creatine Kinase Troponin I Total Protein Albumin Vitamin B12 Folate Folate Hemolysate TSH Urine Color Urine Appearance Urine pH Ur Specific [place] Urine Protein Urine Glucose (UA) Urine Ketones Urine Blood Urine Nitrite Urine Bilirubin Urine Urobilinogen Ur Leukocyte Esterase Urine WBC (Auto) Urine RBC (Auto) Urine Casts (Auto) U Epithel Cells (Auto) Urine Bacteria (Auto) Digoxin COVID-19 (CHERYLE) 02/01/20 02/01/20 02/01/20 11:40 17:06 21:05 WBC RBC Hgb Hct MCV MCH MCHC RDW Plt Count MPV Absolute Neuts (auto) Neutrophils % Lymphocytes % Monocytes % Eosinophils % Basophils % Nucleated RBC % PT with INR INR PTT (Actin FS) Sodium Potassium Chloride Carbon Dioxide Anion Gap BUN Creatinine Est GFR (CKD-EPI)AfAm Est GFR (CKD-EPI)NonAf POC Glucometer 169 137 Random Glucose Hemoglobin A1c % Calcium Phosphorus Magnesium Total Bilirubin AST ALT Alkaline Phosphatase Creatine Kinase Troponin I Total Protein Albumin Vitamin B12 526 Folate Folate Hemolysate TSH Urine Color Urine Appearance Urine pH Ur Specific [place] Urine Protein Urine Glucose (UA) Urine Ketones Urine Blood Urine Nitrite Urine Bilirubin Urine Urobilinogen Ur Leukocyte Esterase Urine WBC (Auto) Urine RBC (Auto) Urine Casts (Auto) U Epithel Cells (Auto) Urine Bacteria (Auto) Digoxin COVID-19 (CHERYLE) 02/02/20 02/02/20 02/02/20 06:20 07:25 07:25 WBC RBC Hgb Hct 28.9 L MCV MCH MCHC RDW Plt Count MPV Absolute Neuts (auto) Neutrophils % Lymphocytes % Monocytes % Eosinophils % Basophils % Nucleated RBC % PT with INR INR PTT (Actin FS) Sodium 138 Potassium 4.9 Chloride 108 H Carbon Dioxide 22 Anion Gap 8 BUN 14.0 Creatinine 0.8 Est GFR (CKD-EPI)AfAm 80.70 Est GFR (CKD-EPI)NonAf 69.63 POC Glucometer 153 Random Glucose 151 H Hemoglobin A1c % Calcium 9.6 Phosphorus 4.1 Magnesium 2.4 Total Bilirubin AST ALT Alkaline Phosphatase Creatine Kinase Troponin I Total Protein Albumin Vitamin B12 Folate 979 Folate Hemolysate 283.0 TSH 0.44 Urine Color Urine Appearance Urine pH Ur Specific [place] Urine Protein Urine Glucose (UA) Urine Ketones Urine Blood Urine Nitrite Urine Bilirubin Urine Urobilinogen Ur Leukocyte Esterase Urine WBC (Auto) Urine RBC (Auto) Urine Casts (Auto) U Epithel Cells (Auto) Urine Bacteria (Auto) Digoxin COVID-19 (CHERYLE) 02/02/20 02/02/20 07:25 16:28 WBC 5.9 RBC 3.26 L Hgb 9.5 L Hct 28.3 L MCV 87.1 MCH 29.1 MCHC 33.4 RDW 14.9 Plt Count 295 MPV 9.0 Absolute Neuts (auto) Neutrophils % Lymphocytes % Monocytes % Eosinophils % Basophils % Nucleated RBC % PT with INR INR PTT (Actin FS) Sodium Potassium Chloride Carbon Dioxide Anion Gap BUN Creatinine Est GFR (CKD-EPI)AfAm Est GFR (CKD-EPI)NonAf POC Glucometer 154 Random Glucose Hemoglobin A1c % Calcium Phosphorus Magnesium Total Bilirubin AST ALT Alkaline Phosphatase Creatine Kinase Troponin I Total Protein Albumin Vitamin B12 Folate Folate Hemolysate TSH Urine Color Urine Appearance Urine pH Ur Specific [place] Urine Protein Urine Glucose (UA) Urine Ketones Urine Blood Urine Nitrite Urine Bilirubin Urine Urobilinogen Ur Leukocyte Esterase Urine WBC (Auto) Urine RBC (Auto) Urine Casts (Auto) U Epithel Cells (Auto) Urine Bacteria (Auto) Digoxin COVID-19 (CHERYLE) HOSPITAL COURSE: Patient was brought into ED after being found home alone unable to walk by her DIRECT SUPPORT SPECIALIST. In ED appeared very malnourished and possibly altered. Her labs showed JULIETTE, hyperkalemia and UTI. She was admitted for failure to thrive and UTI. She was treated with IV antibiotics and UTI resolved. Her electrolytes were corrected and she was given IVF. CT head and MRI of brain showed no acute pathology. Thoracic, lumbar and pelvic xrays were negative for fractures. Due to creatinine clearance, patient was placed on lower dose of her home digoxin. Because we were concerned about patient's malnurishment and possibility of hypoglycemia, we discontinued her glypizide and started her on januvia and metformin. 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 Patient needs to follow up with her pcp for medication lorna nciliation. Patient's was d/c to rehab to regain her strength. CT HEAD: Moderate atrophy and periventricular chronic microvascular ischemic disease changes without gross CT evidence of acute intracranial pathology. Calcification of the cavernous carotid arteries again noted with prominent calcification involving the distal left internal carotid artery up to its bifurcation without gross evidence of an aneurysm. However, if clinically indicated, correlation with MRA of the brain could be obtained for further evaluation. MRI BRAIN: No acute infarct is identified. A very small chronic left cerebellar infarct is noted as on a prior MRI study of 01/15/2009. Moderate periventricular and subcortical chronic microvascular ischemic changes are seen which appear mildly increased. Date of Admission:01/24/20 Date of Discharge: 02/02/20 Minutes to complete discharge: 36 Discharge Summary Problems reviewed: Yes Reason For Visit: ACUTE KIDNEY INJURY FAILURE TO THRIVE Condition: Stable - Instructions Diet, Activity, Other Instructions: Visit: You presented to the hospital unable to walk. You had a UTI and was dehydrated. We treated you with fluids and antibiotics. You are going to rehab to help you regain your strength. Your diabetes number was elevated. Medications We changed some of your medications: Please do NOT take glipizide for your diabetes We also lowered your digoxin dose from 0.25mg to 0.125 mg. Continue taking your Xeralto 20mg daily and your amlodipine 5 mg daily Please take metformin 500 once a day Please take Januvia 25 mg once a day Please start taking atorvastatin 20 mg once a day, you will need to repeat your liver enzymes in 1 month. Follow up: Please follow up with your primary care physician within 1-2 weeks after discharge for follow up care. You will need repeat complete blood count and metabolic profile. you will need to check your liver numbers in 3-4 weeks. If you have new, worsening, or concerning symptoms please return to the ED or call 911 Referrals: Gordon Smith MD [Staff Physician] - Disposition: INTERMEDIATE FACILITY - Home Medications Comprehensive Discharge Medication List: Ambulatory Orders Omeprazole 40 mg PO DAILY 01/26/20 Rivaroxaban [Xarelto -] 20 mg PO HS 01/26/20 Sennosides/Docusate Sodium [Stool Softener-Laxative Tablet] 1 each PO TID 01/26/20 Amlodipine Besylate [Norvasc -] 5 mg PO DAILY tablet 02/02/20 Atorvastatin Ca [Lipitor] 20 mg PO HS tablet 02/02/20 Digoxin [Lanoxin -] 0.125 mg PO DAILY tablet 02/02/20 Insulin Sliding Scale [Novolog Vial Sliding Scale -] 1 vial SQ TIDAC units 02/02/20 Sitagliptin Phosphate [Januvia -] 25 mg PO DAILY@0700 tab 02/02/20 metFORMIN XR [Glucophage Xr -] 500 mg PO DAILY@0700 tab.sr.24h 02/02/20 This patient is new to me today: No Emergency Visit: Yes ED Registration Date: 01/24/20 Care time: The patient presented to the Emergency Department on the above date and was hospitalized for further evaluation of their emergent condition. Critical Care patient: No - Discharge Referral Referred to [facility] No ATTENDING PHYSICIAN STATEMENT I saw and evaluated the patient. I reviewed the resident's note and discussed the case with the resident. I agree with the resident's findings and plan as documented. SUBJECTIVE: OBJECTIVE: ASSESSMENT AND PLAN:
[2020-02-02] MEDS ORDERED: ATORVASTATIN CA 20 MG TABLET (FP) PO SCH (22:00)
== END 2020-02-02 21:09 | DRG 689 ==
LOC: JER 14:45 → JERBED 18:40 → J6WEST-2 01-25 14:48 → J6S 01-29 15:23
PROVIDERS: ADMIT Internal Medicine; ATTEND Internal Medicine
DX: N39.0 Urinary tract infection, site not specified (principal); G93.41 Metabolic encephalopathy; E43 Unspecified severe protein-calorie malnutrition; N17.9 Acute kidney failure, unspecified; E87.1 Hypo-osmolality and hyponatremia; Z68.1 Body mass index [BMI] 19.9 or less, adult; R64 Cachexia; R47.01 Aphasia; R62.7 Adult failure to thrive; I10 Essential (primary) hypertension; E11.9 Type 2 diabetes mellitus without complications; K21.9 Gastro-esophageal reflux disease without esophagitis; E87.5 Hyperkalemia; E86.0 Dehydration; F03.90 Unspecified dementia, unspecified severity, without behavioral disturbance, psychotic disturbance, mood disturbance, and anxiety
CPT/HCPCS: 36415; 70450-TC; 70551-TC; 71045-TC-FY; 72070-TC-FY; 72100-TC-FY; 72170-TC-FY; 76775-TC; 80048; 80053; 80162; 81003; 82550; 82607; 82747; 82962; 83036; 83735; 84100; 84443; 84484; 85014; 85025; 85027; 85610; 85730; 87077; 87086; 93005; 93010; 97116-GP; 97161-GP; 99285-25; J0131; J1644; U0003